=== PATIENT | male | born 1930 | race Two or more races ===

== ENCOUNTER 2017-06-26 22:57 | Inpatient (IN) | payer MEDICARE, OTHER ==
[~2017-06-26] VITALS: Ht 177.8 cm; Wt 82.1 kg
--- NOTE | 2017-06-26 23:10 | NUR ---
TO BED 6 A 87 YO MALE BB SPOUSE; "LEFT FOOT, LEG, HIP PAIN, DENIES TRAUMA; PEEING ALOT." PATIENT IS AAOX4, VSS, NAD NOTED, AFEBRILE. COMFORT MEASURES INITIATED. GOWNED. AWAITING FOR ER MD WILKERSON.
--- NOTE | 2017-06-26 23:20 | NUR ---
Dr Saravia at bedside for eval.
--- NOTE | 2017-06-27 00:04 | NUR ---
urined collected via clean catch, called lab for garbage pick up man.
--- NOTE | 2017-06-27 00:28 | NUR ---
Aurea avina in [facility] - 06/27/17 at 0104 by LITA ultrasound completed
[2017-06-27 00:35] LABS: APPEARANCE,URINE CLEAR (CLEAR); BILIRUBIN,URINE NEGATIVE (NEGATIVE); BLOOD, URINE 1+ Ery/uL (NEGATIVE); COLOR,URINE YELLOW (YELLOW); KETONES,URINE NEGATIVE (NEGATIVE); LEUKOCYTE ESTERASE ,URINE 1+ (NEGATIVE); NITRITE, URINE NEGATIVE (NEGATIVE); PROTEIN,URINE NEGATIVE (NEGATIVE); UGLUCOSE NEGATIVE (NEGATIVE); UROBILINOGEN,URINE 0.2 EU/dL (0.2)
[2017-06-27 00:49] LABS: BACTERIA,URINE None seen /HPF (None Seen); MUCUS,URINE Few /LPF (None Seen); SQUAMOUS EPITHELIAL CELL,UR Few /HPF (None Seen)
--- NOTE | 2017-06-27 00:55 | NUR ---
BACK FROM CT.
--- NOTE | 2017-06-27 02:04 | NUR ---
started a saline lock on the right wrist g18, blood drawn and sent to lab.
[2017-06-27 02:11] LABS: BASOPHILS # (AUTO) 0.2 /CMM (0.0-0.2); BASOPHILS % (AUTO) 0.8 % (0.0-2.0); EOSINOPHILS # (AUTO) 0.2 /CMM (0.0-0.7); EOSINOPHILS % (AUTO) 0.9 % (0.0-6.0); HEMATOCRIT 36 % (39-51); HEMOGLOBIN 12.4 g/dL (13.5-17.5); LYMPHOCYTES # (AUTO) 14.8 /CMM (0.8-4.8); LYMPHOCYTES % (AUTO) 63.4 % (20.0-44.0); MEAN CORPUSCULAR HEMOGLOBIN 32 PG (26.0-33.0); MEAN CORPUSCULAR HGB CONC 35 g/dl (31.0-36.0); MEAN CORPUSCULAR VOLUME 92 fL (80-96); MONOCYTES # (AUTO) 1.6 /CMM (0.1-1.30); MONOCYTES % (AUTO) 6.9 % (2.0-12.0); NEUTROPHILS # (AUTO) 6.5 /CMM (1.8-8.9); PLATELET COUNT (AUTO) 214 /CMM (150-450); RDW COEFFICIENT OF VARIATION 15.4 (11.5-15.0); RED BLOOD CELL COUNT(AUTO) 3.89 MIL/uL (4.5-6.0); WHITE BLOOD COUNT (AUTO) 23.3 K/uL (4.3-11.0)
[2017-06-27 02:25] LABS: INR 1.08 (0.87-1.13); PROTHROMBIN TIME 11.6 SECS (9.5-12.7)
[2017-06-27 02:54] LABS: CALCIUM, SERUM 8.5 mg/dL (8.5-10.1); CARBON DIOXIDE 26 mmol/L (21-32); CHLORIDE 91 mmol/L (98-107); GLUCOSE 98 mg/dL (74-106); POTASSIUM 4.5 mmol/L (3.5-5.1); SODIUM SERUM 123 mmol/L (136-145); UREA NITROGEN, BLOOD 17 mg/dL (7-18)
[2017-06-27] MEDS ORDERED: LACT1CAP63 PO (02:59)
[2017-06-27] MEDS ORDERED: MULT-70 PO ×2 (02:59)
[2017-06-27] MEDS ORDERED: HYDR-552 PO (02:59)
[2017-06-27] MEDS ORDERED: PANT40TA2 PO (02:59)
[2017-06-27 03:00] LABS: ALANINE AMINOTRANSFERASE 86 U/L (12-78); ALBUMIN 2.4 g/dL (3.4-5.0); ALKALINE PHOSPHATASE 103 U/L (46-116); ASPARTATE AMINOTRANSFERASE 63 U/L (15-37); BILIRUBIN,DIRECT 0.4 mg/dL (0.0-0.2); BILIRUBIN,TOTAL 1.2 mg/dL (0.2-1.0); LIPASE 80 U/L (73-393); TOTAL PROTEIN, SERUM 5.7 g/dL (6.4-8.2)
[2017-06-27 03:03] LABS: TROPONIN I < 0.017 ng/mL (0.00-0.056)
[2017-06-27] MEDS ORDERED: PIPERACILLIN /TAZOBACTAM 3.375 G VIAL IV ONE (03:28)
[2017-06-27] MEDS ORDERED: CEFTRIAXONE 1 G in IV D5W 50 ML IV SCH (03:30)
[2017-06-27] MEDS ORDERED: ONDANSETRON HCL/PF 4 MG/2 ML VIAL IVP PRN (03:30)
[2017-06-27] MEDS ORDERED: MAG HYDROX/AL HYDROX/SIMETH 30 ML UDC PO PRN (03:30)
[2017-06-27] MEDS ORDERED: ACETAMINOPHEN 325 MG TABLET PO PRN (03:30)
[2017-06-27] MEDS ORDERED: PIPERACILLIN /TAZOBACTAM 3.375 G in IV D5W 50 ML IV ONE (03:30)
[2017-06-27] MEDS ORDERED: MAGNESIUM HYDROXIDE 30 ML UDC PO PRN (03:30)
[2017-06-27] MEDS ORDERED: Z GUARD REMEDY 2 OZ OINT TP PRN (03:30)
--- NOTE | 2017-06-27 03:38 | NUR ---
Patient is sleeping comfortably at this time.
--- NOTE | 2017-06-27 04:00 | NUR ---
MS/RN NOTES RECEIVED PT. FROM ER VIA JENNIFFER. PT. IS AWAKE, ALERT AND ORIENTED X3. BREATHING EVEN AND UNLABORED ON ROOM AIR. ORIENTED PT. TO ROOM. NO SOB OR RESPIRATORY DISTRESS NOTED AT THIS TIME. PT. COMPLAINING OF PAIN 8/10 IN LEFT HIP. WILL ADMINISTER PAIN MEDICATION ORDERED. PT. FAMILY MEMBER PRESENT AT BEDSIDE. BED IN LOWEST POSITION, CALL LIGHT WITHIN REACH, WILL CONTINUE TO MONITOR.
--- NOTE | 2017-06-27 04:01 | NUR ---
Report given to Mee FERNANDO for medsurg admission and tolu.
--- NOTE | 2017-06-27 04:09 | NUR ---
Transported patient to [facility] floor rm [id number], no incident noted. SO at bedside.
[2017-06-27 04:10] VITALS: BP 146/81
[2017-06-27] MEDS ORDERED: CEFTRIAXONE 1 G VIAL ONE (04:17)
[2017-06-27 04:21] LABS: EOSINOPHILS % (MANUAL) 3 % (0-4); LYMPHOCYTES % (MANUAL) 66 % (16-48); MONOCYTES % (MANUAL) 2 % (0-11.0); NEUTROPHILS % (MANUAL) 29 (42-76)
[2017-06-27] MEDS ORDERED: MORPHINE SULFATE INJ 2 MG/ML DISP.SYRIN ONE (04:39)
[2017-06-27] MEDS: MORPHINE SULFATE INJ 2 MG/ML DISP.SYRIN IV PRN (04:43)
[2017-06-27] MEDS: IV NS 0.9% 1,000 ML IV PRN ×2 (04:43→18:05)
--- NOTE | 2017-06-27 06:36 | NUR ---
MS/RN NOTES PT. LYING IN BED RESTING. BREATHING EVEN AND UNLABORED ON ROOM AIR. NO SOB, RESPIRATORY DISTRESS OR COMPLAINTS OF PAIN NOTED AT THIS TIME. PT. WITH RIGHT WRIST 18 GAUGE PERIPHERAL IV PRESENT, PATENT AND INTACT ADMINISTERING TO PT. NS @ 75 ML/HR. ALL PT. NEEDS MET. PT. TURNED AND REPOSITIONED Q2H AND NEEDED. BED IN LOWEST POSITION, CALL LIGHT WITHIN REACH, WILL ENDORSE TO DAYSHIFT NURSE FOR CONTINUITY OF CARE.
--- NOTE | 2017-06-27 07:42 | NUR ---
RN MS NOTES RECEIVED PATIENT IN BED, A/OX3, VERBALLY RESPONSIVE. NO APPARENT DISTRESS NOTED, DENIES PAIN, DENIES SOB. IV LINE ON RIGHT WRIST PATENT, INFUSING NS AT 75 ML/R. ALL NEEDS MET, CALL LIGHT WITHIN REACH.
[2017-06-27 08:00] VITALS: BP 142/75
[2017-06-27] MEDS: MULTIVITAMINS,THERAGRAN 1 UDTAB TABLET PO SCH (08:51)
[2017-06-27] MEDS: LACTOBACILLUS RHAMNOSUS GG 1 EACH CAP.SPRINK PO SCH ×2 (08:51→16:51)
[2017-06-27] MEDS: PANTOPRAZOLE 40 MG TABLET.DR PO SCH (08:51)
[2017-06-27] MEDS: GABAPENTIN 100 MG CAPSULE PO SCH ×2 (12:34→16:51)
[2017-06-27] MEDS: NAPROXEN 250 MG TABLET PO SCH ×2 (12:34→16:51)
[2017-06-27 13:27] LABS: URINE SODIUM, RANDOM 13 mmol/l (40-220)
[2017-06-27 13:36] LABS: OSMOLALITY,URINE 276 mOS/kg (340-1090)
[2017-06-27] MEDS: HYDROCODONE/APAP 5/325MG 1 EACH TABLET PO PRN (14:32)
[2017-06-27 16:00] VITALS: BP 132/93
--- NOTE | 2017-06-27 19:06 | NUR ---
RN MS CLOSING NOTES PATIENT IN BED, NO APPARENT DISTRESS NOTED, DENIES PAIN, DENIES SOB. IV LINE ON RIGHT WRIST PATENT, INFUSING NS AT 75ML/HR. ALL DUE MEDS GIVE, ALL NEEDS MET. WILL ENDORSE CARE TO PM SHIFT.
--- NOTE | 2017-06-27 19:30 | NUR ---
RN NOTES RECEIVED PT AWAKE ON BED, A/OX3, WITH CONFUSION, AT BEDSIDE, DENIES PAIN, NO SOB, CALL LIGHT WITHIN REACH, SIDERAILS UPX2, WILL CONTINUE TO MONITOR
[2017-06-27 20:00] VITALS: BP 120/65
--- NOTE | 2017-06-27 23:00 | NUR ---
RN NOTES PT WANTS HIS DOOR TO CLOSED TIGHTLY BUT WE EXPLAINED TO HIM THAT WE NEED TO COME ON HIS ROOM EVERY HOUR TO CHECK ON HIM SO WE CAN'T CLOSED IT TIGHTLY , PT STILL INSIST AND HE" STATED INOCENCIA HE IS GOING TO BE LIABLE FOR WHATEVER HAPPEN TO HIM"
[2017-06-28] MEDS: CEFTRIAXONE 1 G in IV D5W 50 ML IV SCH (05:52)
--- NOTE | 2017-06-28 06:37 | NUR ---
RN NOTES AWAKE, IV FLUID RUNNING, DENIES PAIN, NO SOB, MORNING CARE RENDERED, PT NEEDS ATTENDED. ENDORSED TO DAYSHIFT NURSE FOR CONTINUITY OF CARE
[2017-06-28 07:02] LABS: BASOPHILS # (AUTO) 0.1 /CMM (0.0-0.2); BASOPHILS % (AUTO) 0.4 % (0.0-2.0); EOSINOPHILS # (AUTO) 0.2 /CMM (0.0-0.7); EOSINOPHILS % (AUTO) 1.2 % (0.0-6.0); HEMATOCRIT 36 % (39-51); HEMOGLOBIN 12.3 g/dL (13.5-17.5); LYMPHOCYTES # (AUTO) 10.7 /CMM (0.8-4.8); LYMPHOCYTES % (AUTO) 56.8 % (20.0-44.0); MEAN CORPUSCULAR HEMOGLOBIN 32 PG (26.0-33.0); MEAN CORPUSCULAR HGB CONC 35 g/dl (31.0-36.0); MEAN CORPUSCULAR VOLUME 93 fL (80-96); MONOCYTES % (AUTO) 10.8 % (2.0-12.0); NEUTROPHILS # (AUTO) 5.8 /CMM (1.8-8.9); NEUTROPHILS % (AUTO) 30.8 % (43.0-81.0); PLATELET COUNT (AUTO) 146 /CMM (150-450); RDW COEFFICIENT OF VARIATION 15.3 (11.5-15.0); RED BLOOD CELL COUNT(AUTO) 3.83 MIL/uL (4.5-6.0); WHITE BLOOD COUNT (AUTO) 18.9 K/uL (4.3-11.0)
[2017-06-28 07:15] LABS: CALCIUM, SERUM 8.6 mg/dL (8.5-10.1); CARBON DIOXIDE 26 mmol/L (21-32); CHLORIDE 95 mmol/L (98-107); CREATININE 0.8 mg/dL (0.6-1.3); GLUCOSE 96 mg/dL (74-106); MAGNESIUM 1.9 mg/dL (1.8-2.4); PHOSPHORUS 3.2 mg/dL (2.5-4.9); POTASSIUM 4.3 mmol/L (3.5-5.1); SODIUM SERUM 128 mmol/L (136-145); UREA NITROGEN, BLOOD 15 mg/dL (7-18)
[2017-06-28 07:16] LABS: OSMOLALITY,URINE 288 mOS/kg (340-1090)
[2017-06-28 07:23] LABS: CHOLESTEROL 97 mg/dL (<200); HDL CHOLESTEROL < 10 mg/dL (40-60); LDL 47 mg/dL (0-99); TRIGLYCERIDES 191 mg/dL (30-150)
--- NOTE | 2017-06-28 07:46 | NUR ---
RN MS NOTES RECEIVED PATIENT IN BED, VERBALLY RESPONSIVE. NO APPARENT DISTRESS NOTED, DENIES PAIN DENIES SOB. IV LINE ON RIGHT WRIST PATENT, INFUSING NS AT 75ML/HR. ALL NEEDS MET, CALL LIGHT WITHIN REACH.
[2017-06-28 07:57] LABS: URINE SODIUM, RANDOM 14 mmol/l (40-220)
[2017-06-28 08:00] VITALS: BP 154/90
[2017-06-28] MEDS: PANTOPRAZOLE 40 MG TABLET.DR PO SCH (09:35)
[2017-06-28] MEDS: GABAPENTIN 100 MG CAPSULE PO SCH ×3 (09:35→17:14)
[2017-06-28] MEDS: LACTOBACILLUS RHAMNOSUS GG 1 EACH CAP.SPRINK PO SCH ×2 (09:35→17:13)
[2017-06-28] MEDS: MULTIVITAMINS,THERAGRAN 1 UDTAB TABLET PO SCH (09:35)
[2017-06-28] MEDS: NAPROXEN 250 MG TABLET PO SCH ×3 (09:35→17:13)
[2017-06-28 10:00] LABS: LYMPHOCYTES % (MANUAL) 61 % (16-48); MONOCYTES % (MANUAL) 5 % (0-11.0); NEUTROPHILS % (MANUAL) 34 (42-76)
--- NOTE | 2017-06-28 11:00 | NUR ---
RN MS NOTES PATIENT AMBULATED AROUND UNIT WITH WALKER ASSISTANCE. TOLERATED WELL.
[2017-06-28] MEDS: IV NS 0.9% 1,000 ML IV PRN (11:23)
[2017-06-28 16:00] VITALS: BP 131/73
[2017-06-28] MEDS: BOOST PLUS FOOD-VANILLA 237 ML BOX PO SCH (18:11)
--- NOTE | 2017-06-28 18:41 | NUR ---
RN MS CLOSING NOTES PATIENT IN BED, VERBALLY RESPONSIVE WITH AT BEDSIDE. NO APPARENT DISTRESS NOTED, DENIES PAIN, DENIES SOB. IV LINE ON RIGHT WRIST PATENT, INFUSING NS AT 75ML/HR. ALL NEEDS MET, CALL LIGHT WITHIN REACH. WILL ENDORSE CARE TO PM SHIFT.
[2017-06-28] MEDS: MORPHINE SULFATE INJ 2 MG/ML DISP.SYRIN IV PRN (19:07)
--- NOTE | 2017-06-28 19:30 | NUR ---
MS RN OPENING NOTES: PATIENT IN BED, AOX3, ON ROOM AIR, BREATHING EVEN AND UNLABORED, BREATH SOUNDS CLEAR TO AUSCULTATION, SLIGHTLY DIMINISHED OVER LEFT LOWER LUNG FIELD. PIV OVER R WRIST G 18 INTACT AND PATENT, INFUSING WELL WITH NS RUNNING AT 75 ML/HR. DRESSING OVER PIV SITE CHANGED. WHEN ASKED IF HE HAS PAIN, PATIENT POINTS TOWARDS LEFT HIP, BUT WAS UNABLE TO SCALE IT AT THIS TIME,APPEARS RELAXED AND COMFORTABLE, CHEWING GUM. AT BEDSIDE. PROVIDED FOR COMFORT AND SAFETY. BED IN LOWEST AND LOCKED POSITION. SIDERAILS UP X3. WILL CONT TO MONITOR.
[2017-06-28 20:00] VITALS: BP 138/72
[2017-06-29] MEDS: IV NS 0.9% 1,000 ML IV PRN ×2 (02:02→20:00)
[2017-06-29] MEDS: HYDROCODONE/APAP 5/325MG 1 EACH TABLET PO PRN (02:22)
--- NOTE | 2017-06-29 02:24 | NUR ---
RN NOTES: PATIENT COMPLAINED OF PAIN OVER 7/10 LEFT HIP. ADMINISTERED NORCO 5-325 MG PO. POSITIONED FOR COMFORT. WILL CONT TO MONITOR.
[2017-06-29 02:25] VITALS: BP 136/78
[2017-06-29] MEDS: CEFTRIAXONE 1 G in IV D5W 50 ML IV SCH (05:41)
--- NOTE | 2017-06-29 06:35 | NUR ---
MS RN CLOSING NOTES: PATIENT IN BED, AOX3, ON ROOM AIR, BREATHING EVEN AND UNLABORED. APPEARS CALM AND IN NO DISTRESS. PATIENT ONLY SLEPT INTERMITTENTLY THROUGH NIGHT DUE TO URINARY FREQUENCY. POSITIONED FOR COMFORT. DUE MEDS GIVEN. PIV OVER R WRIST G 18 INTACT AND INFUSING WELL WITH NS RUNNING AT 75 ML/HR. MORNING CARE RENDERED. ASSISTED IN TURNING IN BED. PROVIDED FOR COMFORT AND SAFETY. BED IN LOWEST AND LOCKED POSITION, SIDERAILS UP X3. CALL LIGHT WITHIN REACH. WILL ENDORSE TO AM RN FOR MARCE.
[2017-06-29 07:11] LABS: APPEARANCE,URINE CLEAR (CLEAR); BILIRUBIN,URINE NEGATIVE (NEGATIVE); BLOOD, URINE TRACE-INTA Ery/uL (NEGATIVE); COLOR,URINE YELLOW (YELLOW); KETONES,URINE NEGATIVE (NEGATIVE); LEUKOCYTE ESTERASE ,URINE TRACE (NEGATIVE); NITRITE, URINE NEGATIVE (NEGATIVE); PROTEIN,URINE NEGATIVE (NEGATIVE); UGLUCOSE NEGATIVE (NEGATIVE); UROBILINOGEN,URINE 0.2 EU/dL (0.2)
[2017-06-29 07:21] LABS: ALANINE AMINOTRANSFERASE 80 U/L (12-78); ALBUMIN 2.3 g/dL (3.4-5.0); ALKALINE PHOSPHATASE 92 U/L (46-116); ASPARTATE AMINOTRANSFERASE 68 U/L (15-37); BILIRUBIN,DIRECT 0.2 mg/dL (0.0-0.2); BILIRUBIN,TOTAL 0.8 mg/dL (0.2-1.0); CALCIUM, SERUM 8.5 mg/dL (8.5-10.1); CARBON DIOXIDE 28 mmol/L (21-32); CHLORIDE 97 mmol/L (98-107); CREATININE 0.9 mg/dL (0.6-1.3); GLUCOSE 89 mg/dL (74-106); MAGNESIUM 2.1 mg/dL (1.8-2.4); PHOSPHORUS 3.2 mg/dL (2.5-4.9); POTASSIUM 4.4 mmol/L (3.5-5.1); SODIUM SERUM 129 mmol/L (136-145); TOTAL PROTEIN, SERUM 5.3 g/dL (6.4-8.2); UREA NITROGEN, BLOOD 15 mg/dL (7-18)
[2017-06-29 07:28] LABS: BASOPHILS # (AUTO) 0.1 /CMM (0.0-0.2); BASOPHILS % (AUTO) 0.4 % (0.0-2.0); EOSINOPHILS # (AUTO) 0.3 /CMM (0.0-0.7); EOSINOPHILS % (AUTO) 1.6 % (0.0-6.0); HEMATOCRIT 35 % (39-51); HEMOGLOBIN 11.9 g/dL (13.5-17.5); LYMPHOCYTES # (AUTO) 11.2 /CMM (0.8-4.8); LYMPHOCYTES % (AUTO) 56.6 % (20.0-44.0); MEAN CORPUSCULAR HEMOGLOBIN 32 PG (26.0-33.0); MEAN CORPUSCULAR HGB CONC 35 g/dl (31.0-36.0); MEAN CORPUSCULAR VOLUME 93 fL (80-96); MONOCYTES # (AUTO) 1.6 /CMM (0.1-1.30); MONOCYTES % (AUTO) 8.2 % (2.0-12.0); NEUTROPHILS # (AUTO) 6.6 /CMM (1.8-8.9); NEUTROPHILS % (AUTO) 33.2 % (43.0-81.0); PLATELET COUNT (AUTO) 127 /CMM (150-450); RDW COEFFICIENT OF VARIATION 14.9 (11.5-15.0); RED BLOOD CELL COUNT(AUTO) 3.72 MIL/uL (4.5-6.0); WHITE BLOOD COUNT (AUTO) 19.8 K/uL (4.3-11.0)
--- NOTE | 2017-06-29 07:46 | NUR ---
RN NOTES RECEIVED PT IN BED, PT IS STABLE AND SLEEPING. A/O X3. NO S/S OF SOB OR DISTRESS. IV ACCESS LOCATED ON RIGHT WRIST, 18G RUNNING NS AT 75 ML/HR. SAFETY MEASURES IN PLACE, CALL LIGHT WITHIN REACH. WILL CONTINUE TO MONITOR.
[2017-06-29 07:56] LABS: RBC,URINE 0-3 /HPF (0-2)
[2017-06-29 07:57] LABS: BACTERIA,URINE None seen /HPF (None Seen); SQUAMOUS EPITHELIAL CELL,UR Few /HPF (None Seen)
[2017-06-29 08:00] VITALS: BP 146/85
[2017-06-29] MEDS: GABAPENTIN 100 MG CAPSULE PO SCH ×3 (08:17→16:23)
[2017-06-29] MEDS: LACTOBACILLUS RHAMNOSUS GG 1 EACH CAP.SPRINK PO SCH ×2 (08:17→16:23)
[2017-06-29] MEDS: NAPROXEN 250 MG TABLET PO SCH ×3 (08:17→16:23)
[2017-06-29] MEDS: MULTIVITAMINS,THERAGRAN 1 UDTAB TABLET PO SCH (08:17)
[2017-06-29] MEDS: PANTOPRAZOLE 40 MG TABLET.DR PO SCH (08:18)
[2017-06-29] MEDS: BOOST PLUS FOOD-VANILLA 237 ML BOX PO SCH ×2 (09:08→16:24)
[2017-06-29] MEDS: MORPHINE SULFATE INJ 2 MG/ML DISP.SYRIN IV PRN ×3 (11:53→22:46)
--- NOTE | 2017-06-29 12:35 | NUR ---
Social service consult requested by GINNA Roper in regarding to questions regarding advance directives. Pt. is a 89 year old male who was admitted to [facility] for Splenic Hematoma. SCHUYLER met with pt. and his Nyla bedside. Pt. was asleep during SW's visit bedside. Pt's Nyla informed SCHUYLER she and her want some information on Advance Directives. SCHUYLER explained advance directives to Nyla and informed her that she will bring the Advance Directives Form later this afternoon and go over the form with her and the pt. Nyla had some questions for case management, SCHUYLER informed Nyla, she will let the caseworker intake know and have them come see her regarding answering her questions.
[2017-06-29 16:00] VITALS: BP 126/80
--- NOTE | 2017-06-29 18:53 | NUR ---
RN CLOSING NOTE PATIENT IS AWAKE AND STABLE IN BED. IS BEDSIDE. NO S/S OF DISTRESS OR PAIN. PAIN MANAGEMENT COMPLETED FOR PATIENT. ALL PATIENT NEEDS MET, SAFETY MEASURES IN PLACE. WILL ENDORSE TO WELCOME WAGON HOST/HOSTESS FOR MARCE.
--- NOTE | 2017-06-29 19:30 | NUR ---
MS RN OPENING NOTES: PATIENT IN BED, AOX3, ON ROOM AIR, BREATHING EVEN AND UNLABORED. PIV OVER R HAND G18 NOTED TO BE LEAKING. APPEARS CALM AND IN NO DISTRESS. DENIES PAIN AT THIS TIME. PROVIDED FOR COMFORT AND SAFETY. AT BEDSIDE. WILL CONT TO MONITOR.
[2017-06-29 20:00] VITALS: BP 124/75
--- NOTE | 2017-06-29 20:30 | NUR ---
RN NOTES: PIV OVER R HAND WAS LEAKING. D'GABRIEL LINE AND REINSERTED NEW IV LINE OVER LEFT WRIST G22.
--- NOTE | 2017-06-29 22:50 | NUR ---
RN NOTES: PATIENT COMPLAINED OF 9/10 PAIN OVER LEFT SIDE OF ABDOMEN, EXTENDING TO LEFT HIP, AND TO LEFT LEG. ADMINISTERED MORPHINE 2 MG IV. PROVIDED FOR COMFORT MEASURES. PATIENT IN BED, ON LOWEST POSITION, SIDERAILS UP, BED ALARMS ON. AT BEDSIDE. WILL CONT TO MONITOR.
[2017-06-30] MEDS: CEFTRIAXONE 1 G in IV D5W 50 ML IV SCH (05:34)
--- NOTE | 2017-06-30 06:18 | NUR ---
MS RN CLOSING NOTES: PATIENT IN BED, AOX3, ON ROOM AIR, BREATHING EVEN AND UNLABORED. PIV OVER LEFT WRIST G 22 INTACT AND INFUSING WELL WITH NS RUNNING AT 75 ML/HR. PROVIDED FOR COMFORT AND SAFETY. DUE MEDS GIVEN,. MORNING CARE RENDERED. PROVIDED FOR COMFORT AND SAFETY. BED IN LOWEST AND LOCKED POSITION, SIDERAILS UP X3. BED ALARM ON. WILL ENDORSE TO AM RN FOR MARCE.
--- NOTE | 2017-06-30 07:20 | NUR ---
RN MS NOTES PATIENT IN BED, ALERT AND ORIENTED X3, NO DISTRESS NOTED, BREATHING EVEN AND UNLABORED, ALL NEEDS ATTENDED, PIV PATENT AND INTACT, IVF INFUSING AND TOLERATING WELL, CALL LIGHT WITHIN REACH, SAFETY MEASURES IN PLACED, WILL CONTINUE TO MONITOR.
[2017-06-30 07:28] LABS: BASOPHILS # (AUTO) 0.1 /CMM (0.0-0.2); BASOPHILS % (AUTO) 0.2 % (0.0-2.0); EOSINOPHILS # (AUTO) 0.2 /CMM (0.0-0.7); EOSINOPHILS % (AUTO) 0.7 % (0.0-6.0); HEMATOCRIT 35 % (39-51); HEMOGLOBIN 11.9 g/dL (13.5-17.5); LYMPHOCYTES # (AUTO) 11.3 /CMM (0.8-4.8); LYMPHOCYTES % (AUTO) 48.6 % (20.0-44.0); MEAN CORPUSCULAR HEMOGLOBIN 32 PG (26.0-33.0); MEAN CORPUSCULAR HGB CONC 34 g/dl (31.0-36.0); MEAN CORPUSCULAR VOLUME 93 fL (80-96); MONOCYTES # (AUTO) 1.7 /CMM (0.1-1.30); MONOCYTES % (AUTO) 7.2 % (2.0-12.0); NEUTROPHILS # (AUTO) 10.1 /CMM (1.8-8.9); NEUTROPHILS % (AUTO) 43.3 % (43.0-81.0); PLATELET COUNT (AUTO) 119 /CMM (150-450); RDW COEFFICIENT OF VARIATION 15.5 (11.5-15.0); RED BLOOD CELL COUNT(AUTO) 3.76 MIL/uL (4.5-6.0); WHITE BLOOD COUNT (AUTO) 23.2 K/uL (4.3-11.0)
[2017-06-30 07:37] LABS: CARBON DIOXIDE 23 mmol/L (21-32); CHLORIDE 98 mmol/L (98-107); CREATININE 0.9 mg/dL (0.6-1.3); GLUCOSE 96 mg/dL (74-106); POTASSIUM 4.6 mmol/L (3.5-5.1); SODIUM SERUM 130 mmol/L (136-145); UREA NITROGEN, BLOOD 18 mg/dL (7-18)
[2017-06-30 07:58] LABS: PROTHROMBIN TIME 11.6 SECS (9.5-12.7)
[2017-06-30 07:59] LABS: D-DIMER 4.89 mg/L(FEU (0.17-0.50); INR 1.08 (0.87-1.13)
[2017-06-30 08:00] VITALS: BP 129/88
[2017-06-30] MEDS: IV NS 0.9% 1,000 ML IV PRN ×2 (08:38→23:14)
[2017-06-30] MEDS: MULTIVITAMINS,THERAGRAN 1 UDTAB TABLET PO SCH (08:39)
[2017-06-30] MEDS: NAPROXEN 250 MG TABLET PO SCH ×3 (08:39→17:00)
[2017-06-30] MEDS: GABAPENTIN 100 MG CAPSULE PO SCH ×3 (08:39→17:00)
[2017-06-30] MEDS: LACTOBACILLUS RHAMNOSUS GG 1 EACH CAP.SPRINK PO SCH ×2 (08:39→17:17)
[2017-06-30] MEDS: PANTOPRAZOLE 40 MG TABLET.DR PO SCH (08:39)
[2017-06-30] MEDS: HYDROCODONE/APAP 5/325MG 1 EACH TABLET PO PRN (08:40)
[2017-06-30] MEDS: BOOST PLUS FOOD-VANILLA 237 ML BOX PO SCH ×2 (09:04→17:17)
[2017-06-30 16:00] VITALS: BP 124/79
--- NOTE | 2017-06-30 18:16 | NUR ---
RN MS NOTES PATIENT IN BED ALERT AND ORIENTED, BREATHING EVEN AND UNLABORED, NO DISTRESS NOTED, SPOUSE AT BEDSIDE, PIV PATENT AND INTACT, FLUSHES WELL, IVF INFUSING, ALL NEEDS ATTENDED AND MET, CALL LIGHT WITHIN REACH, SPOUSE REQUESTING FOR A UROLOGIST, WILL ENDORSE TO IMPREGNATOR ELECTROLYTIC CAPACITORS.
--- NOTE | 2017-06-30 19:20 | NUR ---
RN NOTES PATIENT IN BED, AOX3, NO SOB, NOT IN DISTRESS, ON ROOM AIR, ON ROOM AIR WITH GOOD SATURATION. DENIES PAIN AND DISCOMFORT AT THIS TIME, AT BEDSIDE. IV ACCESS ON LEFT WRIST PATENT AND INTACT WITH ONGOING IVF INFUSING WELL. KEPT COMFORTABLE AND ATTENDED. WILL CONT TO MONITOR.
--- NOTE | 2017-06-30 19:50 | NUR ---
RN NOTES SEEN AND EXAMINED BY DR PEREZ, NEW ORDER RECEIVED TYLENOL SCHEDULED DOSE, AT BEDSIDE AWARE. NOTED AND CARRIED OUT. WILL CONTINUE TO MONITOR PT.
[2017-06-30 20:00] VITALS: BP 123/73
[2017-06-30 22:00] VITALS: BP 123/73
[2017-07-01] MEDS ORDERED: ACETAMINOPHEN 325 MG TABLET PO SCH
[2017-07-01] MEDS: CEFTRIAXONE 1 G in IV D5W 50 ML IV SCH (05:28)
--- NOTE | 2017-07-01 07:25 | NUR ---
PRN NOTES PT ASLEEP, BREATHING REGULAR AND UNLABORED, ON ROOM AIR AND TOLERATED WELL.VITAL SIGNS STABLE, AFEBRILE. NO COMPLAIN OF PAIN, DIZZINESS, NAUSEA AND VOMITING. ABLE TO AMBULATE WITH FWW WITH ASSISTANCE GOING TO THE BATHROOM. STILL NOTED WITH URINARY FREQUENCY. NO SIGNIFICANT CHANGE IN CONDITION NOTED. KEPT PAIN AT TOLERABLE LEVEL. ALL NEEDS ATTENDED. WILL ENDORSE TO MORNING RN FOR CONTINUITY OF CARE.
[2017-07-01 08:00] VITALS: BP 142/88
[2017-07-01] MEDS: BOOST PLUS FOOD-VANILLA 237 ML BOX PO SCH ×2 (08:00→16:45)
[2017-07-01] MEDS: PANTOPRAZOLE 40 MG TABLET.DR PO SCH (09:00)
[2017-07-01] MEDS: LACTOBACILLUS RHAMNOSUS GG 1 EACH CAP.SPRINK PO SCH ×2 (09:00→16:40)
[2017-07-01] MEDS: MULTIVITAMINS,THERAGRAN 1 UDTAB TABLET PO SCH (09:00)
[2017-07-01] MEDS: GABAPENTIN 100 MG CAPSULE PO SCH ×3 (09:00→16:40)
[2017-07-01] MEDS: NAPROXEN 250 MG TABLET PO SCH ×3 (09:00→16:40)
--- NOTE | 2017-07-01 09:48 | NUR ---
MS RN NOTE PLEASE SEE NURSING NOTE IN CHART FOR MORNING DOCUMENTATION DUE TO SYSTEM BEING DOWN. ALSO SEE DOWNTIME MEDICATION LIST IN PATIENT'S CHART FOR MEDICATIONS GIVEN DURING SYSTEM DOWNTIME IN CHART
--- NOTE | 2017-07-01 12:30 | NUR ---
MS RN NOTE PER PATIENT HE DOESNT WANT TO TAKE NOON AND ONE O'CLOCK SCHEDULED MEDICATIONS. EXPLAINED RISKS AND BENEFITS, STILL REFUSED.
[2017-07-01] MEDS: ACETAMINOPHEN 325 MG TABLET PO SCH ×2 (12:33→18:00)
--- NOTE | 2017-07-01 12:38 | NUR ---
On 06/29, SW had met with pt. and his Nyla and explained the Advance Directive form. SW met with pt. and his today and gave them a blank copy of the Advance Directive Form and informed Nyla that since pt. is going to a nursing facility, the nursing facility can facilitate with the Ombudsman to assist in completing the advance directive.
[2017-07-01 16:00] VITALS: BP 127/66
[2017-07-01] MEDS: IV NS 0.9% 1,000 ML IV PRN (17:41)
--- NOTE | 2017-07-01 18:31 | NUR ---
MS RN CLOSING NOTE PATIENT IS ALERT AND ORIENTED x3. NO PAIN AT THIS TIME. NO SOB OR DISTRESS NOTED. CALL LIGHT WITHIN REACH AT ALL TIMES. SAFETY MEASURES IMPLEMENTED. ALL DUE MEDICATION GIVEN ORDERED. IV INTACT AND PATENT, NO REDNESS OR SWELLING NOTED. IV FLUIDS RUNNING AT 75 ML/HR. ABLE TO COMMUNICATE NEEDS. AWAITING PLACEMENT PRIOR TO DISCHARGE. WILL ENDORSE TO WATCH PARTS GRINDER NURSE
[2017-07-01 20:00] VITALS: BP 122/70
--- NOTE | 2017-07-01 20:00 | NUR ---
RN NOTES RECEIVED PATIENT IN BED, ALERT AND ORIENTED X3, ABLE TO VERBALIZE NEEDS, NO SOB, NO RESPIRATORY DISTRESS, TOLERATING ROOM AIR, SPO2 95%, DENIES ANY PAIN AT THIS TIME, LEFT WRIST INFUSING WELL, NEEDS ATTENDED, AT THE BEDSIDE, WILL CONTINUE TO MONITOR.
[2017-07-02] MEDS: ACETAMINOPHEN 325 MG TABLET PO SCH ×5 (00:40→23:04)
[2017-07-02] MEDS: IV NS 0.9% 1,000 ML IV PRN (04:57)
[2017-07-02] MEDS: CEFTRIAXONE 1 G in IV D5W 50 ML IV SCH (05:49)
--- NOTE | 2017-07-02 06:25 | NUR ---
RN NOTES PATIENT IN BED ALERT AND AWAKE, NO SOB, NO DISTRESS, GIVEN TYLENOL 650 MG SCHEDULE FOR GENERALIZED PAIN OF 3/10. NO ADVERSE CHANGE OF CONDITION DURING SHIFT, SLEPT FOR 5 HOURS INTERMITTENTLY, ALL DUE MEDICATIONS GIVEN, CALL LIGHT WITHIN REACH.
--- NOTE | 2017-07-02 07:39 | NUR ---
MS RN OPENING NOTE PATIENT IS ALERT AND ORIENTED x3. NO PAIN AT THIS TIME. NO SOB OR DISTRESS NOTED. CALL LIGHT WITHIN REACH. SAFETY MEASURES IMPLEMENTED. ABLE TO COMMUNICATE NEEDS. IV INTACT AND PATENT NO REDNESS OR SWELLING NOTED. POSSIBLE DISCHARGE TODAY. WILL CONTINUE TO MONITOR
[2017-07-02 08:00] VITALS: BP 126/65
[2017-07-02] MEDS: NAPROXEN 250 MG TABLET PO SCH ×3 (08:57→17:33)
[2017-07-02] MEDS: LACTOBACILLUS RHAMNOSUS GG 1 EACH CAP.SPRINK PO SCH ×2 (08:57→17:33)
[2017-07-02] MEDS: MULTIVITAMINS,THERAGRAN 1 UDTAB TABLET PO SCH (08:57)
[2017-07-02] MEDS: GABAPENTIN 100 MG CAPSULE PO SCH ×3 (08:57→17:33)
[2017-07-02] MEDS: PANTOPRAZOLE 40 MG TABLET.DR PO SCH (08:57)
[2017-07-02] MEDS: BOOST PLUS FOOD-VANILLA 237 ML BOX PO SCH ×2 (08:58→17:33)
[2017-07-02 16:00] VITALS: BP 148/81
--- NOTE | 2017-07-02 18:28 | NUR ---
MS RN CLOSING NOTE PATIENT IS ALERT AND ORIENTED x3. NO PAIN AT THIS TIME. NO SOB OR DISTRESS NOTED. CALL LIGHT WITHIN REACH AT ALL TIMES. SAFETY MEASURES IMPLEMENTED. IV INTACT AND PATENT NO REDNESS OR SWELLING NOTED. ABLE TO COMMUNICATE NEEDS. HAS BILATERAL HEARING AIDS IN AT THIS TIME. PATIENT WAS SUPPOSED TO BE DISCHARGED TODAY, WAS UPSET WANTING TO SPEAK TO JIM, GINNA AND ERIKA DIRECTOR. PATIENT'S SPOKE WITH THEM IN REGARDS TO DISCHARGE PLANNING. HAS BEEN UNABLE TO REACH AFTER LEAVING HOSPITAL AND NOT RESPONDING BACK TO PHONE CALLS. ALL DISCHARGE PAPERWORK PREPARED, PATIENT REFUSING TO SIGN PAPERWORK UNTIL HE SPEAKS WITH HIS . CHARGE NURSE AND NURSING RN GASTROENTEROLOGY ARE AWARE ABOUT SITUATION. CASE MANAGEMENT, PROFESSOR OF COMMUNICATION ARTS AND ERIKA ARE ALL WORKING ON DISCHARGE PLAN WITH AND PATIENT. WILL ENDORSE TO RIVETING MACHINE OPERATOR NURSE.
[2017-07-02 20:00] VITALS: BP 134/77
--- NOTE | 2017-07-02 20:00 | NUR ---
Ms/Rn opening notes patient awake,alertx3, able to verbalize needs. attend needs at all times. cooperative to care. provide fluids and needs. family () at bedside w/ concerns and inform the need to speak to the head nurse. inform md order to dc patient and family spoke w/ head nurse. patient does not want to sign d/c form as patient family want to read over the paper work. awaiting and will keep monitoring Nurse automobile mechanic supervisor have reiterated the plan of care per md order for discharge.
[2017-07-02 20:34] VITALS: BP 134/77
[2017-07-03] MEDS: HYDROCODONE/APAP 5/325MG 1 EACH TABLET PO PRN (04:37)
--- NOTE | 2017-07-03 04:37 | NUR ---
ms/rn notes patient reported pain on abdomen, and enlarge prostate, pain level 8/10, norco 5-325mg po given will continue to monitor.
--- NOTE | 2017-07-03 06:14 | NUR ---
ms/rn closing notes patient able to verbalize needs, slept 5-6 hours, pain medication provided norco 5-325mg due to 8/10 on abdomen. effective pain management. able to use urinal w/ 500ml, able to drink fluids.assist to go to bathroom for bm. will endorse to am rn regarding plan of care. call lights within reach. bed in lock position.
[2017-07-03] MEDS: ACETAMINOPHEN 325 MG TABLET PO SCH ×4 (06:40→18:55)
--- NOTE | 2017-07-03 07:15 | NUR ---
RN OPENING NOTES PATIENT IS ALERT AND ORIENTED x3. NO PAIN AT THIS TIME. NO SOB OR DISTRESS NOTED. CALL LIGHT WITHIN REACH. SAFETY MEASURES IMPLEMENTED. ABLE TO COMMUNICATE NEEDS. IV INTACT AND PATENT NO REDNESS OR SWELLING NOTED. POSSIBLE DISCHARGE TODAY. WILL CONTINUE TO MONITOR ACCORDINGLY.
[2017-07-03 08:00] VITALS: BP 124/88
[2017-07-03] MEDS: BOOST PLUS FOOD-VANILLA 237 ML BOX PO SCH ×3 (08:17→17:30)
[2017-07-03] MEDS: LACTOBACILLUS RHAMNOSUS GG 1 EACH CAP.SPRINK PO SCH ×3 (08:18→18:54)
[2017-07-03] MEDS: MULTIVITAMINS,THERAGRAN 1 UDTAB TABLET PO SCH (08:18)
[2017-07-03] MEDS: PANTOPRAZOLE 40 MG TABLET.DR PO SCH (08:18)
[2017-07-03] MEDS: GABAPENTIN 100 MG CAPSULE PO SCH ×4 (08:18→18:54)
[2017-07-03] MEDS: NAPROXEN 250 MG TABLET PO SCH ×4 (08:18→18:55)
--- NOTE | 2017-07-03 13:00 | NUR ---
RN NOTES PHYSICAL THERAPY CAME AND ATTEMPTED 2 TIMES, PATIENT REFUSED TO PARTICIPATE PHYSICAL THERAPY. PER PATIENT, HE DOESN'T FEEL WELL SAYING "IM SICK".
--- NOTE | 2017-07-03 15:30 | NUR ---
RN NOTES DEPENDENT EDEMA ON BLE AND SCROTUM/PENIS NOTED, JIM GIRALDO SNUFF BLENDER MADE AWARE. INSTRUCTED PATIENT TO AMBULATE AND PARTICIPATE WITH PHYSICAL THERAPY. WILL CONTINUE TO MONITOR ACCORDINGLY.
--- NOTE | 2017-07-03 15:51 | NUR ---
SW filed APS report for interference of care by pt's . APS intake ID #[id number] was submitted on 07/03/17 at 3:50PM.
[2017-07-03 16:00] VITALS: BP 128/78
--- NOTE | 2017-07-03 17:30 | NUR ---
RN NOTES PATIENT ACCIDENTALLY SPILL ALL THE MEDICATIONS, PULL ANOTHER SET OF MEDICATIONS FROM OMNICELL.
--- NOTE | 2017-07-03 19:00 | NUR ---
RN CLOSING NOTES PATIENT RESTING, ON BEDSIDE. NO ACUTE DISTRESS, NO SOB NOTED. ALL NEEDS ATTENDED AND PROVIDED. KEPT PATIENT SAFE AND COMFORTABLE. BED IN LOW POSITION, SIDERAILS UPX2, LOCKED, HOB ELEVATED, CALL LIGHT WITHIN REACH. ENDORSED TO PROCESS ARTIST RN FOR CONTINUITY OF CARE.
--- NOTE | 2017-07-03 19:23 | NUR ---
ms/rn opening notes patient sitting in bed, awake, alert x3. family at bedside. am rn discussed continuity of care and discissed concerns , patient cooperative to care, no s/s of discomfort. observed enlarge prostate, able to ambulate w/ use of walker and assist. can tolerate regular foods prefer to have pudding and drinl water. will continue to monitor and will follow up regarding culture result. call light within reach. bed in lock position.
[2017-07-03 20:00] VITALS: BP 109/69
[2017-07-04] MEDS: ACETAMINOPHEN 325 MG TABLET PO SCH ×4 (00:19→17:15)
[2017-07-04 06:49] LABS: BASOPHILS % (AUTO) 0.2 % (0.0-2.0); EOSINOPHILS # (AUTO) 0.5 /CMM (0.0-0.7); EOSINOPHILS % (AUTO) 2.3 % (0.0-6.0); HEMATOCRIT 34 % (39-51); HEMOGLOBIN 11.8 g/dL (13.5-17.5); LYMPHOCYTES # (AUTO) 10.6 /CMM (0.8-4.8); LYMPHOCYTES % (AUTO) 52.8 % (20.0-44.0); MEAN CORPUSCULAR HEMOGLOBIN 32 PG (26.0-33.0); MEAN CORPUSCULAR HGB CONC 35 g/dl (31.0-36.0); MEAN CORPUSCULAR VOLUME 91 fL (80-96); MONOCYTES % (AUTO) 9.7 % (2.0-12.0); PLATELET COUNT (AUTO) 99 /CMM (150-450); RDW COEFFICIENT OF VARIATION 16.1 (11.5-15.0); WHITE BLOOD COUNT (AUTO) 20.1 K/uL (4.3-11.0)
--- NOTE | 2017-07-04 07:00 | NUR ---
ms/rn closing notes patient in bed, awake, alertx3. able to verbalize needs, cooperative to care. no s/s of discomfort. on routine pain mgmt, tyleno1, 650mg po was given. skin warm to touch, able to have large bm ,offered and provide fluids. call lights within reach, bed in lock position. will continue to monitor and endorse to am rn for plan of care.
[2017-07-04 07:05] LABS: CALCIUM, SERUM 8.3 mg/dL (8.5-10.1); CARBON DIOXIDE 24 mmol/L (21-32); CHLORIDE 91 mmol/L (98-107); CREATININE 0.8 mg/dL (0.6-1.3); GLUCOSE 91 mg/dL (74-106); POTASSIUM 4.5 mmol/L (3.5-5.1); SODIUM SERUM 123 mmol/L (136-145); UREA NITROGEN, BLOOD 18 mg/dL (7-18)
--- NOTE | 2017-07-04 07:05 | NUR ---
MS RN INITIAL NOTE REPORT RECEIVED AT THE BEDSIDE. PATIENT IS RESTING COMFORTABLY IN BED. NO SOB OR DISTRESS NOTED AT THIS TIME. PATIENT DENIES PAIN AT THIS TIME. BED IN A LOW POSITION CALL LIGHT WITHIN PATIENT REACH. WILL CONTINUE TO MONITOR.
--- NOTE | 2017-07-04 07:45 | NUR ---
RN NOTES PATIENT ASSISTED OUT OF BED TO CHAIR. PATIENT NEEDS ONLY MINOR, STANDBY ASSISTANCE; AMBULATES WITH WALKER. PATIENT TOLERATED AMBULATION WELL, NO SOB OR DISTRESS NOTED, STEADY GATE NOTED. WILL GET PATIENT OUT OF BED FOR MEALS.
[2017-07-04 08:00] VITALS: BP 134/78
[2017-07-04] MEDS: BOOST PLUS FOOD-VANILLA 237 ML BOX PO SCH ×2 (08:40→17:15)
[2017-07-04] MEDS: LACTOBACILLUS RHAMNOSUS GG 1 EACH CAP.SPRINK PO SCH ×2 (08:41→17:15)
[2017-07-04] MEDS: PANTOPRAZOLE 40 MG TABLET.DR PO SCH (08:41)
[2017-07-04] MEDS: NAPROXEN 250 MG TABLET PO SCH ×3 (08:41→17:15)
[2017-07-04] MEDS: GABAPENTIN 100 MG CAPSULE PO SCH ×3 (08:41→17:15)
[2017-07-04 08:44] LABS: EOSINOPHILS % (MANUAL) 4 % (0-4); LYMPHOCYTES % (MANUAL) 37 % (16-48); MONOCYTES % (MANUAL) 7 % (0-11.0); NEUTROPHILS % (MANUAL) 52 (42-76)
[2017-07-04] MEDS: MULTIVITAMINS,THERAGRAN 1 UDTAB TABLET PO SCH (08:44)
[2017-07-04] MEDS: HYDROCODONE/APAP 5/325MG 1 EACH TABLET PO PRN (10:12)
--- NOTE | 2017-07-04 10:20 | NUR ---
RN NOTES PATIENT ASSISTED BACK TO BED. ONLY STANDBY ASSISTANCE NEEDED. PATIENT TOLERATED AMBULATION WELL. WILL CONTINUE TO MONITOR.
--- NOTE | 2017-07-04 14:08 | NUR ---
RN NOTES JIM, MANAGER OF HEALTH, AWARE OF LEG AND SCROTAL EDEMA AND EXAMINED PATIENT AT THE BEDSIDE. NO NEW ORDERS OTHER THAN AMBULATE PATIENT MUCH POSSIBLE AND OUT OF BED AT MEALS.
--- NOTE | 2017-07-04 14:09 | NUR ---
RN NOTES PATIENT'S , VALARIE IS ON THE FLOOR. JIM SPOKE TO THE PATIENT'S AND EXPLAINED THAT THE PATIENT IS MEDICALLY CLEARED TO DISCHARGE AND THAT THE APPEAL WAS NOT ACCEPTED. UMA AND CHARGE NURSE ORTIZ IN ROOM AND AGAIN IT WAS EXPLAINED THAT THE DISCHARGE IS ACTIVE AND THAT THE PATIENT CAN NO LONGER STAY IN THE HOSPITAL. THE PATIENT'S IS STILL REFUSING THE DISCHARGE. AWAITING NEXT WORD FROM NICCI ON WHAT TO DO NEXT.
--- NOTE | 2017-07-04 14:23 | NUR ---
RN NOTES UMA AND IN ROOM DISCUSSING PATIENT APPEAL AND DISCHARGE WITH , VALARIE.
--- NOTE | 2017-07-04 14:29 | NUR ---
RN NOTES PER UMA; PATIENT HAS UNTIL 1200 NOON TOMORROW BEFORE MEDICARE WILL NO LONGER COVER THE HOSPITAL VISIT AND THE PATIENT WILL BE CHARGED FOR THE VISIT. UMA, MANAGER ASSISTED LIVING, STATES THAT SHE WILL INFORM GINNA FERNANDEZ, OF THE DISCUSSION WITH THE PATIENT AND .
[2017-07-04 16:00] VITALS: BP 130/69
--- NOTE | 2017-07-04 16:54 | NUR ---
RN NOTES PATIENT'S SON JAMEL JASON CAME TO THE FLOOR REQUESTING INFORMATION ABOUT HIS FATHER. WAS UNABLE TO PROVIDE JAMEL WITH INFORMATION PATIENT IS IN THE RESTROOM AND NOT YET READY TO SEE HIS SON AND HAS NOT GIVEN PERMISSION TO SPEAK TO HIM OF NOW. PATIENT STATES HE WILL COME BACK LATER AND ASKS TO BE CONTACTED IF HE FATHER STATES IT IS OK TO SPEAK TO HIM ABOUT HIS CONDITION. . WILL ASK PATIENT ABOUT PERMISSION TO SPEAK TO SON AT A LATER TIME.
--- NOTE | 2017-07-04 19:11 | NUR ---
MS RN CLOSING NOTES NO SIGNIFICANT CHANGES IN PATIENT CONDITION THROUGHOUT THE SHIFT. NO SOB OR DISTRESS NOTED AT THIS TIME. PATIENT DENIES PAIN. PATIENT CURRENTLY SITTING UP IN CHAIR EATING. CALL LIGHT WITHIN REACH, FAMILY AT THE BEDSIDE. WILL ENDORSE FOR MARCE.
[2017-07-04 20:00] VITALS: BP 116/60
--- NOTE | 2017-07-04 20:00 | NUR ---
MS RN NOTES IS VERY MUCH CONCERN ABOUT SWELLING ON BOTH LEGS, WELL THE SCROTUM,THAT ITS BEEN GOING FOR 48 HOURS AND NOTHING HAS BEEN DONE.ITS WAS EXPLAINED TO HER THAT PATIENT WAS SEEN BY NEPHRO DOCTOR AND WILL STAR ON FLUID RESTRICTION,ELEVATION OF LOWER EXTREMITIES AND SEND OFF URINE FOR STUDY.BUT STILL WANTS TO SEE DOCTOR FOR FURTHER EVALUATION OF OF PATIENT.
--- NOTE | 2017-07-04 20:00 | NUR ---
MS RN NOTES RECEIVED SITTING COMFORTABLY ON BEDSIDE CHAIR,A/O X 2-3.NO SOB,NOTED EDEMA ON BOTH LOWER EXTREMITIES.AMBULATE WITH WALKER,ASSISTED. AT BEDSIDE.CALL LIGHT I REACH,NEEDS ANTICIPATED.
--- NOTE | 2017-07-04 21:00 | NUR ---
MS RN NOTES MD LAMINATION BUILDER WAS JOSIAS AND ITS DR CURRY,CALLED BACK AND SPOKE TO PATIENT .WILL SEE PATIENT AT MIDNIGHT
--- NOTE | 2017-07-05 02:30 | NUR ---
MS RN NOTES MD VISIT SEEN BY DR CURRY,SPOKE TO PATIENT ,NO NEW ORDERS.
[2017-07-05] MEDS: ACETAMINOPHEN 325 MG TABLET PO SCH ×4 (05:27→17:16)
[2017-07-05 06:43] LABS: BASOPHILS % (AUTO) 0.2 % (0.0-2.0); EOSINOPHILS # (AUTO) 0.2 /CMM (0.0-0.7); HEMATOCRIT 34 % (39-51); LYMPHOCYTES # (AUTO) 10.6 /CMM (0.8-4.8); LYMPHOCYTES % (AUTO) 52.3 % (20.0-44.0); MEAN CORPUSCULAR HEMOGLOBIN 32 PG (26.0-33.0); MEAN CORPUSCULAR HGB CONC 35 g/dl (31.0-36.0); MEAN CORPUSCULAR VOLUME 90 fL (80-96); MONOCYTES # (AUTO) 1.8 /CMM (0.1-1.30); MONOCYTES % (AUTO) 8.9 % (2.0-12.0); NEUTROPHILS # (AUTO) 7.6 /CMM (1.8-8.9); NEUTROPHILS % (AUTO) 37.6 % (43.0-81.0); PLATELET COUNT (AUTO) 111 /CMM (150-450); RDW COEFFICIENT OF VARIATION 15.8 (11.5-15.0); RED BLOOD CELL COUNT(AUTO) 3.81 MIL/uL (4.5-6.0); WHITE BLOOD COUNT (AUTO) 20.2 K/uL (4.3-11.0)
[2017-07-05 07:06] LABS: CALCIUM, SERUM 8.5 mg/dL (8.5-10.1); CARBON DIOXIDE 22 mmol/L (21-32); CHLORIDE 89 mmol/L (98-107); CREATININE 0.9 mg/dL (0.6-1.3); GLUCOSE 78 mg/dL (74-106); PHOSPHORUS 3.4 mg/dL (2.5-4.9); SODIUM SERUM 121 mmol/L (136-145); UREA NITROGEN, BLOOD 23 mg/dL (7-18)
--- NOTE | 2017-07-05 07:07 | NUR ---
MS RN NOTES A/O X2-3.BILATERAL LEGS REMAINS SWOLLEN,ELEVATED ON PILLOWS.FLUID RESTRICTIONS EMPHASIZED.POSSIBLE D/C TODAY.IN NO ACUTE DISTRESS.WILL ENDORSE TO DAY NURSE FOR MARCE.
--- NOTE | 2017-07-05 07:19 | NUR ---
RN NOTES PT IS AWAKE IN BED IN HIGH-FOWLERS POSITION. NO SIGNS OF DISTRESS OR PAIN AT THIS TIME. LEG SWELLING BILATERALLY, PLACED ON PILLOWS. IV ON L WRIST, INTACT AND PATENT. SAFETY MEASURES ARE IN PLACE. WILL CONTINUE TO MONITOR.
[2017-07-05 08:00] VITALS: BP 120/66
[2017-07-05] MEDS: BOOST PLUS FOOD-VANILLA 237 ML BOX PO SCH ×2 (08:18→16:21)
[2017-07-05] MEDS: LACTOBACILLUS RHAMNOSUS GG 1 EACH CAP.SPRINK PO SCH ×2 (08:20→16:21)
[2017-07-05] MEDS: PANTOPRAZOLE 40 MG TABLET.DR PO SCH (08:20)
[2017-07-05] MEDS: MULTIVITAMINS,THERAGRAN 1 UDTAB TABLET PO SCH (08:20)
[2017-07-05] MEDS: GABAPENTIN 100 MG CAPSULE PO SCH ×3 (08:20→16:21)
[2017-07-05] MEDS: NAPROXEN 250 MG TABLET PO SCH ×3 (08:20→16:21)
[2017-07-05] MEDS: SODIUM CHLORIDE 1000 MG TABLET.SOL PO SCH ×3 (08:56→20:59)
--- NOTE | 2017-07-05 09:00 | NUR ---
ELEVATED WBC 20.2 LOW SODIUM LEVEL 121 PATIENT IS SEEN BY JAYDE TODAY, ASSISTED PATIENT TO WALK WITH THE WALKER WITH 2 PERSONS ASSIST, PATIENT TOLERATED AMBULATION WELL, ASSISTED BACK TO HIS ROOM AND SAT DOWN IN THE CHAIR, NO C/O PAIN OR ANY DISCOMFORT. WILL CONT TO MONITOR.
--- NOTE | 2017-07-05 09:53 | NUR ---
DR. MARQUEZ ORDERED URINE SODIUM AND OSMOLALITY URINE, WILL COLLECT SPECIMEN. JAYDE MADE AWARE, PER [facility] TREASURER HOLD D/C PER NEPHROLOGY.
--- NOTE | 2017-07-05 13:02 | NUR ---
URINE SPECIMEN SENT TO THE LAB FOR TEST. SCHEDULED MEDS NEURONTIN, TYLENOL NON ADMINISTERED, VALARIE- REFUSED, EDUCATE FAMILY ABOUT THE IMPORTANCE, RISK AND BENEFITS OF THE MEDICATIONS, STILL REFUSED. PER IT CAUSES SWELLING TO PATIENTS LEGS. GINNA-ENZO MADE AWARE.
--- NOTE | 2017-07-05 14:59 | NUR ---
PHONE CALL FROM JAMEL STATED HE IS THE SON OF THE PATIENT, WANTING TO SPEAK TO THE PATIENT WITHOUT PATIENTS INVOLVEMENT. JAMEL IS NOT LISTED IN THE PERSON TO NOTIFY NEITHER THE NEXT OF KIN. SOCIAL SERVICE TO CONSULT, JAMEL VERBALIZED UNDERSTANDING. WILL ENDORSE TO NEXT SHIFT RN, CHARGE NURSE MADE AWARE.
[2017-07-05 16:00] VITALS: BP 127/64
--- NOTE | 2017-07-05 18:25 | NUR ---
PT IS AWAKE IN BED IN SEMI-FOWLERS POSITION WITH AT BEDSIDE. IV ON L WRIST INTACT AND PATENT. PT IS ON ROOM AIR, NO SOB OR SIGNS OF DISTRESS. PT HAS NO COMPLAINTS OF PAIN. SAFETY MEASURES ARE IN PLACE. WILL ENDORSE TO HOT MILL WORKER RN FOR CONTINUITY OF CARE.
[2017-07-05 18:35] LABS: URINE SODIUM, RANDOM 5 mmol/l (40-220)
[2017-07-05 18:46] LABS: OSMOLALITY,URINE 184 mOS/kg (340-1090)
--- NOTE | 2017-07-05 19:35 | NUR ---
MS RN NOTE RECEIVED PATIENT FROM DAY SHIFT, PATIENT IS ALERT AND ORIENTEDX3, FORGETFUL, DENIES RESPIRATORY DISTRESS OR PAIN AT THIS TIME. IV ON LEFT WRIST IS PATENT AND INTACT, HL ONLY. AT BED SIDE AT THIS TIME. SRX2, BED IN LOW POSITION, CALL LIGHT WITHIN REACH, WILL CONTINUE TO MONITOR PATIENT.
[2017-07-05 20:00] VITALS: BP 103/59
[2017-07-06] MEDS: ACETAMINOPHEN 325 MG TABLET PO SCH ×5 (00:11→23:43)
[2017-07-06] MEDS: SODIUM CHLORIDE 1000 MG TABLET.SOL PO SCH ×5 (05:13→21:00)
--- NOTE | 2017-07-06 05:15 | NUR ---
MS KASSIE NOTE COLLECTED CLEAN CATCH URINE SAMPLE, SENT TO THE LAB.
[2017-07-06 07:00] LABS: URINE SODIUM, RANDOM 12 mmol/l (40-220)
--- NOTE | 2017-07-06 07:17 | NUR ---
RN NOTES RECEIVED PT IN BED, SLEEPING. NO SIGNS OF DISTRESS OR SOB. SAFETY MEASURES ARE IN PLACE. WILL CONTINUE TO MONITOR.
--- NOTE | 2017-07-06 07:22 | NUR ---
MS RN NOTE PATIENT IS RESTING IN BED COMFORTABLY, NO S/S OF RESPIRATORY DISTRESS OR PAIN AT THIS TIME. MORNING CARE RENDERED. ENDORSE TO DAY SHIFT NURSE FOR MARCE.
[2017-07-06 07:57] LABS: OSMOLALITY,URINE 242 mOS/kg (340-1090)
[2017-07-06 08:00] VITALS: BP 146/75
[2017-07-06 08:15] LABS: CALCIUM, SERUM 8.3 mg/dL (8.5-10.1); CARBON DIOXIDE 26 mmol/L (21-32); CHLORIDE 92 mmol/L (98-107); CREATININE 0.9 mg/dL (0.6-1.3); GLUCOSE 79 mg/dL (74-106); POTASSIUM 4.4 mmol/L (3.5-5.1); SODIUM SERUM 124 mmol/L (136-145); UREA NITROGEN, BLOOD 20 mg/dL (7-18)
[2017-07-06] MEDS: LACTOBACILLUS RHAMNOSUS GG 1 EACH CAP.SPRINK PO SCH ×2 (08:27→16:23)
[2017-07-06] MEDS: GABAPENTIN 100 MG CAPSULE PO SCH ×3 (08:27→16:23)
[2017-07-06] MEDS: PANTOPRAZOLE 40 MG TABLET.DR PO SCH (08:27)
[2017-07-06] MEDS: NAPROXEN 250 MG TABLET PO SCH ×3 (08:27→16:23)
[2017-07-06] MEDS: MULTIVITAMINS,THERAGRAN 1 UDTAB TABLET PO SCH (08:27)
--- NOTE | 2017-07-06 08:45 | NUR ---
PT WAS OFFERED ORDERED MORNING MEDICATIONS. PT WAS INFORMED ON WHAT THEY WERE FOR AND PT UNDERSTOOD AND AGREED TO TAKE THEM. WILL CONTINUE TO MONITOR FOR UNDERSTANDING AND COMPLIANCE.
--- NOTE | 2017-07-06 09:05 | NUR ---
RN NOTES RECEIVED CALL FROM PATIENT'S X2, REPEATEDLY STATES "HOLD ALL MORNING MEDICATIONS FOR HIM, DO NOT GIVE HIM ANYTHING" EXPLAINED TO STANDARD PROTOCOL FOR MEDICATION ADMINISTRATION, PATIENT IS ALERT AND ORIENTED X3 AT THIS TIME ABLE TO MAKE NEEDS KNOWN. MEDICATIONS OFFERED AND EXPLAINED STANDARD PROTOCOL WITH CONTINUED MONITORING ORDERED BY HOSPITALIST. CONTINUES TO STATE "DO NOT GIVE MEDICATIONS, IT IS IRRESPONSIBLE" REINFORCED NURSING EDUCATION AND EXPLAINED TREATMENT RECOMMENDED AND REVIEWED BY INTERDISCIPLINARY TEAM
[2017-07-06] MEDS: BOOST PLUS FOOD-VANILLA 237 ML BOX PO SCH ×2 (09:51→16:23)
[2017-07-06] MEDS: CEPHALEXIN MONOHYDRATE 500 MG CAPSULE PO SCH ×3 (09:51→22:25)
--- NOTE | 2017-07-06 10:10 | NUR ---
PT WAS INFORMED OF KEFLEX MEDICATION PURPOSE. PTS REFUSED ON BEHALF OF . STATES "DO NOT GIVE ANY MEDICATIONS".
--- NOTE | 2017-07-06 10:43 | NUR ---
SCHUYLER contacted APS office in [place] and spoke to APS director social Reginaldo to inquire if pt. has been assigned a case. According to Reginaldo, pt. has been assigned to APS director social Shirley . SCHUYLER contacted Shirley and left him a voicemail message requesting a call back as soon as possible. SCHUYLER was informed by BRENDA Holloway that pt's son had come to the hospital yesterday but was not able to see the pt. stating that the pt's will become upset. Pt's son had to call several hospitals to inquire the whereabouts of the pt. SCHUYLER notified ANDRA Kelly regarding the name and phone number to APS worker assigned to the case.
--- NOTE | 2017-07-06 12:10 | NUR ---
RN NOTES RECEIVED CALL FROM DAUGHTER, JORDAN, REQUESTING INFORMATION REGARDING PATIENT'S STATUS INFORMED DAUGHTER RN IS UNABLE TO GIVE MEDICAL INFORMATION WHEN ASKED SPEAKS FOR PATIENT AND DOES NOT WANT INFORMATION GIVEN TO FAMILY MEMBERS. DAUGHTER, JORDAN, LEFT HER TELEPHONE NUMBER AND REQUESTS TO BE INFORMED ABOUT PT STATUS IF HER DAD IS OKAY WITH IT,
--- NOTE | 2017-07-06 12:40 | NUR ---
RN NOTES PATIENT'S STATES "I SPOKE TO JIM, HE SAID HE WILL STOP ALL MEDICATIONS AND GIVE HIM LASIX, I DONT WANT HIM TO TAKE ANYTHING ELSE" INFORMED THAT RN WILL CONFIRM WITH HOSPITALIST AND CLARIFY ORDERS
--- NOTE | 2017-07-06 12:45 | NUR ---
RN NOTES REQUESTING FROM RN TO HOLD ALL MEDICATIONS AND ONLY GIVE LASIX, IF PATIENT COMPLAINS OF DISCOMFORT TO GIVE MORPHINE, INFORMED THAT RN WILL ASSESS PATIENT FOR PAIN OR DISCOMFORT AND ADMINISTER PRN MEDICATIONS APPROPRIATELY ORDERED.
--- NOTE | 2017-07-06 12:50 | NUR ---
RN NOTES RN SPOKE TO HOSPITALIST TO CLARIFY ORDERS, PER HOSPITALIST HE IS NOT GIVING A DISCONTINUATION OF MEDICATION ORDERS PART OF TREATMENT PLAN, PATIENT HAS A RIGHT TO REFUSE MEDICATIONS IF HE DOES NOT WANT TO TAKE THEM. RN TO CONTINUE TO MONITOR AND INFORM HOSPITALIST OF ANY CHANGES
--- NOTE | 2017-07-06 12:50 | NUR ---
RN NOTES PTS IS REFUSING TO LET HER (THE PT) TAKE ANY OF THE MEDICATIONS ORDERED BESIDE LASIX.
[2017-07-06] MEDS: FUROSEMIDE 20 MG TABLET PO SCH (12:51)
--- NOTE | 2017-07-06 13:15 | NUR ---
FERN GIRALDO MADE AWARE OF PATIENTS INCREASED WEAKNESS AND DROWSINESS. HE WANTS TO CONTINUE TO MONITOR THE PT FOR ANY CHANGES.
--- NOTE | 2017-07-06 15:18 | NUR ---
SITTER (ISAAC) IN THE ROOM WITH PT AND . ISAAC STATES INSISTS ON GETTING PT UP DESPITE INCREASED WEAKNESS.
--- NOTE | 2017-07-06 15:42 | NUR ---
SCHUYLER contacted pt's son Moisés Forman per his request. Moisés informed SCHUYLER, he is very worried about his father. Pt's Nyla has socially isolated pt. from his four children, 13 grandchildren and all his friends. 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 Moisés informed SCHUYLER that pt's house is in deplorable conditions and pt's is a hoarder. Pt. mostly lives in his motor home or in his den. According to Moisés, him and his sister have been trying to contact the pt. at home for the past two weeks and have not heard from pt. or pt' was not answering any of their calls. Moisés showed up at pt's house and confronted pt's Nyla regarding his dad's whereabouts. Nyla did not share the information with Moisés and informed him that he is hospitalized due to a heart attack and needs surgery, which was not accurate. Moisés informed SCHUYLER that pt. has always been very active and was playing tennis 4 to 5 days per week prior to hospitalization. Moisés informed SCHUYLER that on Thursday during his visit to the hospital, pt. had made an excuse to go to the bathroom to tell the RN to tell his son to not leave because he needs to speak with him when Nyla is not in the room. Moisés stated he waited for 5 hours in the parking area, however left due to Nyla not leaving pt's bedside. Moisés states Nyla is very controlling of the pt. and the pt. is fearful of her. SCHUYLER also spoke to Moisés's rajesh Maher, who also reiterated the information Moisés gave SCHUYLER. SCHUYLER did inform them both an APS report was filed on Monday July 03, 2017 and the case has been assigned to APS social media project manager Shirley. SCHUYLER did inform Moisés, she has already left a message for the APS worker Shirley . SCHUYLER discussed aforementioned information with ANDRA Kelly and porter sample case Ana.
--- NOTE | 2017-07-06 16:24 | NUR ---
PT AND WERE INFORMED OF MEDICATIONS THAT WERE ORDERED AT THIS TIME. REFUSES FOR THE PT TO NOT TAKE ANY MEDICATIONS BESIDE LASIX.
--- NOTE | 2017-07-06 16:55 | NUR ---
RN NOTES PATIENT'S REQUESTING ON BEHALF OF PATIENT TO BE GIVEN MILK OF MAGNESIA PER PATIENT HAS NOT HAD A BOWEL MOVEMENT FOR 3 DAYS, RN REVIEWED PATIENTS CHART TO ASSESS FOR NEED, PATIENT WITH DOCUMENTED BOWEL MOVEMENTS YESTERDAY. RN ALSO ASSESSED PT NOTED WITH POSITIVE BOWEL SOUNDS, NO ABDOMINAL DISTENTION OR TENDERNESS PER PT HAD BOWEL MOVEMENT YESTERDAY INFORMED PATIENT'S THAT MILK OF MAGNESIA IS ORDERED FOR NO BM X3 DAYS PER SECONDARY MARKET MANAGER PATIENT MAY HAVE PRUNE JUICE AND CONTINUE TO MONITOR, EXPLAINED TO . " CONTINUES TO REPEATEDLY STATE, I NEED TO TALK TO JIM AND I NEED MILK OF MAGNESIA NOW" NURSING EDUCATION REINFORCED, PATIENT WILL BE CONTINUED TO BE MONITORED AT THIS TIME
[2017-07-06] MEDS ORDERED: MAGNESIUM HYDROXIDE 30 ML UDC PO PRN (17:30)
--- NOTE | 2017-07-06 19:05 | NUR ---
PT IS IN BED AWAKE AND ALERT. IV ON L WRIST INTACT AND PATENT. AND 1:1 SITTER IN THE ROOM. PT ON O2 VIA NASAL CANNULA AT 2L, SATING 95%. PT WITH GENERALIZED WEAKNESS, NO SIGNS OF DISTRESS OR PAIN. SAFETY MEASURES ARE IN PLACE. WILL ENDORSE TO LAPPING MACHINE SET UP OPERATOR RN FOR CONTINUITY OF CARE.
--- NOTE | 2017-07-06 19:30 | NUR ---
MS RN NOTE RECEIVED PATIENT FROM DAY SHIFT, PATIENT IS ALERT AND ORIENTEDX3, FORGETFUL, NO S/S OF RESPIRATORY DISTRESS OR PAIN AT THIS TIME. IV ON LEFT WRIST IS PATENT AND INTACT, HL ONLY. AT BED SIDE AT THIS TIME. SRX2, BED IN LOW POSITION, CALL LIGHT WITHIN REACH, WILL CONTINUE TO MONITOR PATIENT.
--- NOTE | 2017-07-06 19:50 | NUR ---
MS RN NOTE PATIENT'S REQUESTED TO CALL ARABELLA DURON FOR INCREASING DOSE OF LASIX, AND WANTS TO SPEAK WITH ELASTIC CUTTER ENZO REGARDING HOLD ALL OF HIS MEDICATIONS. SHE ALSO STATED THAT THIS IS EMERGENCY SITUATION THAT PATIENT IS HYPERVENTILATING. ASSESSED THE PATIENT, VS WNL 113/67, PULSE 80 RR 18 TEMP 98.7F SAT 94% WITH 2L/MIN O2, NON-LABORED BREATHING NOTED. EDUCATED PATIENT'S THAT WE WILL KEEP MONITORING HIS CONDITION AND PROVIDED EDUCATION TO HER THAT HIS NA AND ALBUMIN LEVEL IS LOW, THERE ARE RISKS TO INCREASE LASIX AT THIS TIME.
[2017-07-06 20:00] VITALS: BP 113/67
--- NOTE | 2017-07-06 21:50 | NUR ---
MS RN NOTE PATIENT'S STRONGLY INSISTED THAT PT NEEDS MORE LASIX EVEN AFTER REPETITIVE EDUCATION TO HIS , SHE ALSO DOESN'T WANT HIM TO TAKE NACL PO AT THIS TIME. SHE WANTS TO CALL DR. KHALIL, AND GET AN ORDER OF ANOTHER DOSE OF LASIX, KEEPS INSISTING THAT SHE WANTS TO SPEAK WITH THE DOCTOR DIRECTLY. CONTACTED [facility] AND SPOKE WITH ONCALL DR. KHALIL, REPORTED ABOUT THE SITUATION, GOT AN ORDER OF LASIX 20MG PO ONCE NOW. ORDERS PUT IN AND WILL ADMINISTER.
[2017-07-06] MEDS ORDERED: FUROSEMIDE 20 MG TABLET PO ONE (22:00)
[2017-07-07] MEDS: ACETAMINOPHEN 325 MG TABLET PO SCH ×2 (06:00→11:43)
--- NOTE | 2017-07-07 06:55 | NUR ---
MS RN NOTE PATIENT IS SLEEPING IN BED, NO S/S OF RESPIRATORY DISTRESS OR FACIAL GRIMACE NOTED. MORNING CARE RENDERED. WILL ENDORSE TO DAY SHIFT NURSE FOR MARCE.
[2017-07-07 07:10] LABS: BASOPHILS # (AUTO) 0.1 /CMM (0.0-0.2); BASOPHILS % (AUTO) 0.3 % (0.0-2.0); EOSINOPHILS # (AUTO) 0.1 /CMM (0.0-0.7); EOSINOPHILS % (AUTO) 0.5 % (0.0-6.0); HEMATOCRIT 32 % (39-51); HEMOGLOBIN 11.1 g/dL (13.5-17.5); LYMPHOCYTES # (AUTO) 11.1 /CMM (0.8-4.8); LYMPHOCYTES % (AUTO) 52.5 % (20.0-44.0); MEAN CORPUSCULAR HEMOGLOBIN 32 PG (26.0-33.0); MEAN CORPUSCULAR HGB CONC 35 g/dl (31.0-36.0); MEAN CORPUSCULAR VOLUME 90 fL (80-96); MONOCYTES # (AUTO) 2.4 /CMM (0.1-1.30); MONOCYTES % (AUTO) 11.3 % (2.0-12.0); NEUTROPHILS # (AUTO) 7.5 /CMM (1.8-8.9); NEUTROPHILS % (AUTO) 35.4 % (43.0-81.0); PLATELET COUNT (AUTO) 142 /CMM (150-450); RDW COEFFICIENT OF VARIATION 16.5 (11.5-15.0); RED BLOOD CELL COUNT(AUTO) 3.51 MIL/uL (4.5-6.0); WHITE BLOOD COUNT (AUTO) 21.1 K/uL (4.3-11.0)
[2017-07-07 07:27] LABS: ALANINE AMINOTRANSFERASE 34 U/L (12-78); ASPARTATE AMINOTRANSFERASE 50 U/L (15-37); BILIRUBIN,TOTAL 0.8 mg/dL (0.2-1.0); CALCIUM, SERUM 8.4 mg/dL (8.5-10.1); CARBON DIOXIDE 26 mmol/L (21-32); CHLORIDE 91 mmol/L (98-107); CREATININE 0.9 mg/dL (0.6-1.3); GLUCOSE 78 mg/dL (74-106); MAGNESIUM 1.8 mg/dL (1.8-2.4); PHOSPHORUS 3.4 mg/dL (2.5-4.9); SODIUM SERUM 123 mmol/L (136-145); UREA NITROGEN, BLOOD 20 mg/dL (7-18)
--- NOTE | 2017-07-07 07:30 | NUR ---
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 PATIENT DENIES SOB, DIFFICULTY BREATHING AND CHRONIC DULL DISCOMFORT IN KIDNEYS/ABDOMEN. PATIENT REPOSITIONED TO INCREASED COMFORT AND ALL NEEDS IN REACH. ASSISTED FOR PATIENT TO DRINK WATER. EDUCATED ON 1 LITER WATER RESTRICTION PER MD AND PATIENT STATES UNDERSTANDING. PATIENT UPDATED ON CARE PLAN AND SITTER AT SIDE. IV INTACT PATENT NO S/S INFILTRATION. BED LOWERED AND LOCKED, RAILS UPX3 FOR SAFETY AND BED ALARM ON. WILL ROUND Q2H OR LESS PER NEEDS. HEELS AND ELBOWS OFFLOADED
[2017-07-07 07:38] LABS: ALKALINE PHOSPHATASE 88 U/L (46-116)
[2017-07-07 08:00] VITALS: BP 130/71
[2017-07-07] MEDS: CEPHALEXIN MONOHYDRATE 500 MG CAPSULE PO SCH ×2 (08:32→20:22)
[2017-07-07] MEDS: NAPROXEN 250 MG TABLET PO SCH (08:33)
[2017-07-07] MEDS: MULTIVITAMINS,THERAGRAN 1 UDTAB TABLET PO SCH (08:33)
[2017-07-07] MEDS: LACTOBACILLUS RHAMNOSUS GG 1 EACH CAP.SPRINK PO SCH ×2 (08:33→16:51)
[2017-07-07] MEDS: PANTOPRAZOLE 40 MG TABLET.DR PO SCH (08:34)
[2017-07-07] MEDS: FUROSEMIDE 20 MG TABLET PO SCH ×2 (08:34→16:51)
[2017-07-07] MEDS: SODIUM CHLORIDE 1000 MG TABLET.SOL PO SCH (08:35)
--- NOTE | 2017-07-07 08:45 | NUR ---
MS RN NOTES PHYSICAL THERAPY AT BEDSIDE. PATIENT WALKED 40 FEET AND ASSISTED TO CHAIR FOR BREAKFAST. PATIENT STABLE AT THIS TIME.
[2017-07-07] MEDS: BOOST PLUS FOOD-VANILLA 237 ML BOX PO SCH ×2 (08:55→16:48)
[2017-07-07 09:35] LABS: BAND % (MANUAL) 5 % (0.0-5.0); LYMPHOCYTES % (MANUAL) 41 % (16-48); MONOCYTES % (MANUAL) 14 % (0-11.0); NEUTROPHILS % (MANUAL) 40 (42-76)
--- NOTE | 2017-07-07 09:53 | NUR ---
MS RN NOTES NOTIFIED DR RODRIGUEZ PATIENT COMPLAINING OF KIDNEY PAIN/ABD PAIN. MD WILL REVIEW MEDICATIONS AND UPDATE. NO NEW ORDERS AT THIS TIME.
--- NOTE | 2017-07-07 09:58 | NUR ---
SCHUYLER left a second voicemail message for [facility] social worker masters Shirley requesting a call back as soon as possible.
--- NOTE | 2017-07-07 10:15 | NUR ---
ms rn notes dr goldman at bedside
--- NOTE | 2017-07-07 10:30 | NUR ---
MS RN NOTES NOTIFIED MD NIKKO ROWAN OF PATIENT AND FAMILY CONCERNS OF GABAPENTIN/NAPROXEN/TYLENOL. PER MD AT THIS TIME OK TO DC GABAPENTIN. PATIENT AWARE NEEDING URINE SAMPLE. SITTER AT SIDE WILL ASSIST PATIENT
--- NOTE | 2017-07-07 12:08 | NUR ---
SCHUYLER contacted Shirley at [facility] again. Shirley informed SCHUYLER that he is not the case sealer and requested for SCHUYLER to contact the [place] field office. SCHUYLER called [facility] field office in [place] and left a voicemail message on their duty line and requested a call back.
--- NOTE | 2017-07-07 12:30 | NUR ---
MS RN NOTES URINE SAMPLE OBTAINED FROM PATIENT. READY FOR LAB PLAYBACK OPERATOR
--- NOTE | 2017-07-07 14:45 | NUR ---
MS RN NOTES DR ROWAN AT BEDSIDE AND ATTEMPTING TO UPDATE PATIENT AND AT BEDSIDE. IS CONTINUING TO INTERRUPT MD AND DEMANDING MEDICATIONS BE DISCONTINUED, DOSAGES BE CHANGED, AND CONTINUING TO TELL THE DOCTOR THEY ARE DANGEROUS" AND DO NOT KNOW WHAT THEY ARE DOING. STATES SHE HAS KNOWN THE PATIENT FOR OVER 20 YEARS AND WE DO NOT KNOW HIM. MD ATTEMPTED TO EXPLAIN THAT THEY ARE TREATING THE PATIENT OF NOW AND WHAT IS HAPPENING WITH HIM. CONTINUES TO CUT MD OFF AND STATE SHE IS CORRECT BECAUSE SHE HAS GOOGLED INFORMATION. APPEARS TO BE RECORDING/VOICE RECORDING CONVERSATION WITHOUT CONSENT. ALSO DEMANDING PROGRESS NOTES AND LABS WHEN ALREADY INFORMED OF OUR POLICIES ON HOW TO RECEIVE THESE PAPERS. DEMANDING MD CELL PHONE NUMBERS. PER MD ORDER EC TEACHER/DONOR SERVICES TECHNICIAN TO COME TO ROOM IS IMPEDING IN PATIENT CARE AND A DANGER TO PATIENT.
--- NOTE | 2017-07-07 14:45 | NUR ---
Bianca Rangel contacted SCHUYLER informing her that Pt' s Nyla was videotaping Dr. Carl Burr while he was speaking to her and the pt. Dr. Carl Burr requested for pt. to erase the recording since it was without his permission. Pt' s refused. SCHUYLER, ANDRA Kelly, Nursing supervisor painting shipyard BRENDA Freire and head of security Sarabjit met with pt's bedside and requested for her to erase the recording. Nyla began screaming and yelling at everyone in the room and told SCHUYLER " Balooch, you shut up". Sarabjit informed Nyla she is to be escorted by security out of the hospital and starting from today she is only allowed one hour per day for visitation accompanied by security. Nyla was escorted out of the hospital by Sarabjit and another information security risk analyst. After pt's left, SCHUYLER met with pt. to inquire about his wellbeing and to ask him if he would like to speak to his son Moisés. Pt. replied stating " he is in no position to speak to anyone". SCHUYLER did contact pt's son and left him a voicemail message to return SW's call. SCHUYLER also spoke to pt's daughter Janet Contreras regarding pt's wellbeing.
--- NOTE | 2017-07-07 15:33 | NUR ---
SW spoke to [facility] social work instructor Shirley Danielle / who is assigned to the pt. SW discussed the issues involving pt's Nyla interfering with plan of care and being disruptive. APS worker Shirley informed SW he will come to [facility] tomorrow to visit with pt. and SCHUYLER.
[2017-07-07 15:56] LABS: FREE PSA 0.41 ng/mL (0.00-45); PROSTATE SPECIFIC ANTIGEN SCR 2.23 ng/mL (0.00-4.00)
[2017-07-07 16:00] VITALS: BP 105/67
--- NOTE | 2017-07-07 16:00 | NUR ---
MS RN NOTES INFORMED PATIENT SON EBONY ON PHONE AND PER PATIENT HE DOESNT THINK ITS BEST TO SPEAK WITH ANYONE, HE DOESNT WANT TO SAY ANYTHING..
[2017-07-07] MEDS: ACETAMINOPHEN 325 MG TABLET PO PRN (18:08)
--- NOTE | 2017-07-07 19:04 | NUR ---
MS RN NOTES NOTIFIED DR MAGAÑA PATIENT NOT EATING MEALS AND C/O CONSTIPATION. PER MD ORDER COLACE 100MG PO TID
--- NOTE | 2017-07-07 19:22 | NUR ---
MS RN CLOSING PATIENT UP IN CHAIR STABLE AT THIS TIME. PATIENT TOLERATED ALL YEYO MEDICATIONS NO COMPLICATIONS. ALL NEEDS MET. NEEDS IN REACH. SITTER AT BEDSIDE AND CALL LIGHT IN REACH. RN UPDATED ON PATIENT CONDITION AND VISITING RESTRICTIONS FOR PATIENT VALARIE. CARE ENDORSED TO RN FOR MARCE.
--- NOTE | 2017-07-07 19:45 | NUR ---
MS RN INITIAL NOTE RECEIVED PATIENT FROM DAY SHIFT, PATIENT IS ALERT AND ORIENTEDX3, FORGETFUL AND [place]. PT IS IN CHAIR STILL WORKING ON HIS DINNER TRAY. NO S/S OF RESPIRATORY DISTRESS OR PAIN AT THIS TIME. IV ON LEFT WRIST IS PATENT AND INTACT, HL. CALL LIGHT WITHIN REACH, WILL CONTINUE TO MONITOR PATIENT.
[2017-07-07 20:00] VITALS: BP 102/63
--- NOTE | 2017-07-08 06:51 | NUR ---
MS RN CLOSING NOTE PATIENT IS SLEEPING IN BED, NO S/S OF RESPIRATORY DISTRESS OR FACIAL GRIMACE NOTED. MORNING CARE RENDERED. BED IS IN LOW AND LOCKED POSITION, CALL LIGHT WITHIN REACH. WILL ENDORSE TO DAY SHIFT.
--- NOTE | 2017-07-08 07:40 | NUR ---
RN MS NOTES PATIENT IN BED, ALERT AND ORIENTED, FORGETFUL, HARD OF HEARING, NO DISTRESS NOTED AT THIS TIME, BREATHING EVEN AND UNLABORED, NO SOB, ON FLUID RESTRICTION, NEEDS ATTENDED AND ANTICIPATED, BED LOW AND LOCKED, SIDERAILS X2 UP, BED ALARM ON, CALL LIGHT WITHIN REACH, WILL CONTINUE TO MONITOR.
[2017-07-08 07:47] LABS: ALANINE AMINOTRANSFERASE 35 U/L (12-78); ALKALINE PHOSPHATASE 90 U/L (46-116); ASPARTATE AMINOTRANSFERASE 51 U/L (15-37); BILIRUBIN,TOTAL 0.9 mg/dL (0.2-1.0); CALCIUM, SERUM 8.5 mg/dL (8.5-10.1); CARBON DIOXIDE 27 mmol/L (21-32); CHLORIDE 91 mmol/L (98-107); GLUCOSE 84 mg/dL (74-106); MAGNESIUM 1.6 mg/dL (1.8-2.4); PHOSPHORUS 3.7 mg/dL (2.5-4.9); POTASSIUM 4.2 mmol/L (3.5-5.1); SODIUM SERUM 125 mmol/L (136-145); TOTAL PROTEIN, SERUM 5.1 g/dL (6.4-8.2); UREA NITROGEN, BLOOD 25 mg/dL (7-18)
[2017-07-08 07:51] LABS: BASOPHILS # (AUTO) 0.1 /CMM (0.0-0.2); BASOPHILS % (AUTO) 0.3 % (0.0-2.0); EOSINOPHILS # (AUTO) 0.1 /CMM (0.0-0.7); EOSINOPHILS % (AUTO) 0.6 % (0.0-6.0); HEMATOCRIT 34 % (39-51); HEMOGLOBIN 11.5 g/dL (13.5-17.5); LYMPHOCYTES # (AUTO) 12.3 /CMM (0.8-4.8); LYMPHOCYTES % (AUTO) 50.2 % (20.0-44.0); MEAN CORPUSCULAR HEMOGLOBIN 31 PG (26.0-33.0); MEAN CORPUSCULAR HGB CONC 34 g/dl (31.0-36.0); MEAN CORPUSCULAR VOLUME 91 fL (80-96); MONOCYTES # (AUTO) 2.5 /CMM (0.1-1.30); MONOCYTES % (AUTO) 10.3 % (2.0-12.0); NEUTROPHILS # (AUTO) 9.5 /CMM (1.8-8.9); NEUTROPHILS % (AUTO) 38.6 % (43.0-81.0); PLATELET COUNT (AUTO) 171 /CMM (150-450); RDW COEFFICIENT OF VARIATION 17.1 (11.5-15.0); RED BLOOD CELL COUNT(AUTO) 3.71 MIL/uL (4.5-6.0); WHITE BLOOD COUNT (AUTO) 24.5 K/uL (4.3-11.0)
[2017-07-08 08:00] VITALS: BP 121/68
[2017-07-08] MEDS: LACTOBACILLUS RHAMNOSUS GG 1 EACH CAP.SPRINK PO SCH ×2 (09:17→17:05)
[2017-07-08] MEDS: CEPHALEXIN MONOHYDRATE 500 MG CAPSULE PO SCH ×2 (09:17→21:00)
[2017-07-08] MEDS: FUROSEMIDE 20 MG TABLET PO SCH ×2 (09:17→17:05)
[2017-07-08] MEDS: PANTOPRAZOLE 40 MG TABLET.DR PO SCH (09:17)
[2017-07-08] MEDS: DOCUSATE SODIUM LIQ 100 MG/10 ML UDC PO SCH ×3 (09:17→17:05)
[2017-07-08] MEDS: BOOST PLUS FOOD-VANILLA 237 ML BOX PO SCH ×2 (09:19→17:05)
[2017-07-08] MEDS: MULTIVITAMINS,THERAGRAN 1 UDTAB TABLET PO SCH (09:23)
--- NOTE | 2017-07-08 09:30 | NUR ---
RN MS NOTES PATIENT AMBULATED WITH PHYSICAL THERAPY, PER PT, RECOMMENDATIONS FOR DISCHARGE IS SNF, NOT ARU.
[2017-07-08 10:12] LABS: OSMOLALITY,SERUM 260 mOS/kg (278-305)
[2017-07-08 10:47] LABS: NEUTROPHILS % (MANUAL) 29 (42-76)
[2017-07-08 10:48] LABS: MONOCYTES % (MANUAL) 1 % (0-11.0)
[2017-07-08 10:50] LABS: LYMPHOCYTES % (MANUAL) 69 % (16-48)
[2017-07-08] MEDS: Magnesium 1GM/D5W 100ML PREMIX 100 ML IV SCH ×2 (12:07→14:15)
--- NOTE | 2017-07-08 14:54 | NUR ---
SCHUYLER attempted to leave a message for APS SCHUYLER Danielle on his cellphone to inquire if he was coming today to [facility] as he had mentioned yesterday to SCHUYLER that he was coming to follow up on the APS report that was submitted on July 03, 2017. SCHUYLER was unable to leave a voicemail message due to Shirley's voicemail being full. SCHUYLER contacted APS social studies teacher at his office number and was informed that he is out in the field.
[2017-07-08 16:00] VITALS: BP 116/66
--- NOTE | 2017-07-08 16:20 | NUR ---
SCHUYLER, ANDRA Kelly, correctional casework specialist Mouna and [employer] director KASSIE Griffin met with APS social work supervisor Shirley Danielle to discuss issues regarding pt's . Shirley recommended for pt. to be conserved and gave SCHUYLER the capacity declaration form for conservatorship to be completed by pt's physician. Shirley requested for the form to be faxed to him once completed. Shirley informed the team, he will call pt's son Moisés tomorrow.
--- NOTE | 2017-07-08 18:33 | NUR ---
RN MS NOTES PATIENT IN BED, SLEEPING INTERMITTENTLY BUT EASILY AROUSABLE, PATIENT NOTED TO BE BRUSHING HIS OWN TEETH FOR 30 MINUTES, PIV ON LEFT WRIST PATENT AND FLUSHES WELL, PATIENT CONTINUES ON 1 LITER OF FLUID RESTRICTION, MAGNESIUM REPLACED, SON ALBER CALLED BUT PATIENT REFUSED TO TAKE THE CALL TWICE, ALL NEEDS ATTENDED AND ANTICIPATED, TURNED AND REPOSITIONED, URINAL OFFERED AT TIMES, BUT OTHER TIMES PATIENT USES DIAPER, SAFETY MEASURES IN PLACED, CALL LIGHT WITHIN REACH, WILL CONTINUE TO MONITOR.
--- NOTE | 2017-07-08 19:30 | NUR ---
MS/RN RECEIVE PATIENT APPEAR SLEEPING, AROUSABLE, APPEAR COMFORTABLE, NO SIGNS OF DISTRESS NOTED, SITTER AT BEDSIDE. WILL MONITOR.
[2017-07-08 20:00] VITALS: BP 122/71
--- NOTE | 2017-07-09 00:14 | NUR ---
MS/RN PATIENT IS SLEEPING AT THIS TIME, AROUSABLE, APPEAR COMFORTABLE, NO DISTRESS NOTED, CALL LIGHT IN REACH. WILL CONTINUE TO MONITOR.
--- NOTE | 2017-07-09 06:40 | NUR ---
MS/RN PATIENT SLEEPING, EASILY AROUSABLE, APPEAR COMFORTABLE, NO SIGNS OF DISTRESS NOTED. ALL NEEDS ATTENDED AT THIS TIME. WILL CONTINUE TO MONITOR.
[2017-07-09 06:50] LABS: CALCIUM, SERUM 8.1 mg/dL (8.5-10.1); CARBON DIOXIDE 26 mmol/L (21-32); CHLORIDE 93 mmol/L (98-107); CREATININE 0.9 mg/dL (0.6-1.3); GLUCOSE 87 mg/dL (74-106); POTASSIUM 3.9 mmol/L (3.5-5.1); SODIUM SERUM 128 mmol/L (136-145); UREA NITROGEN, BLOOD 22 mg/dL (7-18)
[2017-07-09 08:00] VITALS: BP 128/79
--- NOTE | 2017-07-09 08:05 | NUR ---
MS RN OPENING NOTE PATIENT IS ALERT AND ORIENTED x3. NO PAIN AT THIS TIME. NO SOB OR DISTRESS NOTED. CALL LIGHT WITHIN REACH. 3L/MIN OXYGEN VIA NASAL CANNULA. IV INTACT AND PATENT NO REDNESS OR SWELLING NOTED. SAFETY MEASURES IMPLEMENTED. ABLE TO COMMUNICATE NEEDS. ON FLUID RESTRICTIONS AND DAILY WEIGHT MONITORING. WILL CONTINUE TO MONITOR PATIENT.
[2017-07-09] MEDS: BOOST PLUS FOOD-VANILLA 237 ML BOX PO SCH ×2 (08:36→17:05)
[2017-07-09] MEDS: LACTOBACILLUS RHAMNOSUS GG 1 EACH CAP.SPRINK PO SCH ×2 (08:37→17:05)
[2017-07-09] MEDS: MULTIVITAMINS,THERAGRAN 1 UDTAB TABLET PO SCH (08:37)
[2017-07-09] MEDS: CEPHALEXIN MONOHYDRATE 500 MG CAPSULE PO SCH ×2 (08:37→21:30)
[2017-07-09] MEDS: DOCUSATE SODIUM LIQ 100 MG/10 ML UDC PO SCH ×3 (08:37→17:00)
[2017-07-09] MEDS: FUROSEMIDE 20 MG TABLET PO SCH ×2 (08:37→17:05)
[2017-07-09] MEDS: PANTOPRAZOLE 40 MG TABLET.DR PO SCH (08:37)
--- NOTE | 2017-07-09 14:21 | NUR ---
MS RN NOTE PATIENT REFUSED PHYSICAL THERAPY TODAY. TRIED MULTIPLE TRIES, EXPLAINED RISKS AND BENEFITS, PATIENT STILL REFUSED. INFORMED CHARGE NURSE. WILL CONTINUE TO MONITOR
[2017-07-09] MEDS: ACETAMINOPHEN 325 MG TABLET PO PRN (14:28)
--- NOTE | 2017-07-09 15:50 | NUR ---
RN NOTE PATIENT IS HEADED DOWN TO CT SCAN OF HEAD WITHOUT CONTRAST. PATIENT IS ALERT AND ORIENTEDX3. NO PAIN AT THIS TIME. NO SOB OR DISTRESS NOTED. ON 2L/MIN OXYGEN VIA NASAL CANNULA.
[2017-07-09 16:00] VITALS: BP 129/84
--- NOTE | 2017-07-09 16:03 | NUR ---
RN NOTE PATIENT IS BACK FROM CT SCAN. PATIENT IS STABLE. VITALS ARE STABLE. NO SOB OR DISTRESS NOTED. WILL CONTINUE TO MONITOR
--- NOTE | 2017-07-09 18:31 | NUR ---
MS RN CLOSING NOTE PATIENT IS ALERT AND ORIENTED X3. PATIENT HAS BEEN A LITTLE MORE CONFUSED TODAY, HAD TO REORIENT MULTIPLE TIMES. MADE MD AWARE DURING ROUNDING. NO PAIN AT THIS TIME. NO SOB OR DISTRESS NOTED. CALL LIGHT WITHIN REACH AT ALL TIMES. SAFETY MEASURES IMPLEMENTED. CT OF HEAD DONE, RESULTS PENDING. STILL AWAITING TO RECEIVE URINE CULTURE. IV INTACT AND PATENT NO REDNESS OR SWELLING NOTED. ALL DUE MEDICATIONS GIVEN ORDERED. WILL ENDORSE TO SPORTS MANAGEMENT INTERN NURSE
--- NOTE | 2017-07-09 19:45 | NUR ---
MS/COURT REPORTER; RECEIVED PT IN BED AWAKE, ALERT AND VERBALLY RESPONSIVE. PT SAID " HI " WHEN I TALKED TO HIM. BREATHING NON LABORED. DENIES PAIN. HL INTACT ON LWA # 22. WITH O2 1L NC ON. NOTED NO HEARING AIDS ON PT'S BOTH EARS. NOTED WITH DRY COUGH. BED ON LOWER POSITION AND LOCKED FOR SAFETY. SIDE RAILS ARE ALL UP FOR SAFETY. WILL CONTINUE TO MONITOR. CALL LIGHT WITHIN REACH.
--- NOTE | 2017-07-09 20:15 | NUR ---
MS/TRADE MARK EXAMINER; CHARGE NURSE TOLD ME THAT THE PT'S JUST CAME AT 2009 ESCORTED BY A FEMALE SECURITY TO THE ROOM.
--- NOTE | 2017-07-09 20:25 | NUR ---
MS/BOX CAR CHECKER; PT'S WAS TELLING AT THE NURSE'S STATION THAT SHE FOUND PT'S RT HEARING AID ON TOP OF THE BLANKET AND SHE PUT IT BACK TO THE PT'S RT EAR AND SHE WANTS ME TO FIND THE OTHER LT HEARING AID. I WENT TO THE ROOM TO CHECKED IT THE RT HEARING IS ON THE RT EAR AND IT IS ON THE RT EAR.
[2017-07-09 20:32] VITALS: BP 98/61
--- NOTE | 2017-07-09 20:45 | NUR ---
MS / RN TRAINING; I ASKED JUWAN THE CIVIL DRAFTING TECHNICIAN TO LOOK FOR THE OTHER LT HEARING AID WHILE HE IS CLEANING THE PT. THE PT'S STILL IN THE ROOM WITH THE SECURITY. NOW JUWAN FOUND THE HEARING AID ON THE FLOOR .
--- NOTE | 2017-07-09 21:10 | NUR ---
MS/MAINFRAME SYSTEMS PROGRAMMER; PT'S LEFT THE FLOOR WITH SECURITY.
[2017-07-09 21:37] LABS: APPEARANCE,URINE CLEAR (CLEAR); BILIRUBIN,URINE NEGATIVE (NEGATIVE); BLOOD, URINE TRACE-INTA Ery/uL (NEGATIVE); KETONES,URINE 1+ (NEGATIVE); LEUKOCYTE ESTERASE ,URINE TRACE (NEGATIVE); NITRITE, URINE NEGATIVE (NEGATIVE); PROTEIN,URINE NEGATIVE (NEGATIVE); UGLUCOSE NEGATIVE (NEGATIVE); UROBILINOGEN,URINE 0.2 EU/dL (0.2)
[2017-07-09 21:40] LABS: COLOR,URINE DARK YELLOW (YELLOW)
[2017-07-09 21:43] LABS: BACTERIA,URINE Rare /HPF (None Seen); SQUAMOUS EPITHELIAL CELL,UR Rare /HPF (None Seen)
[2017-07-10 06:38] LABS: BASOPHILS # (AUTO) 0.1 /CMM (0.0-0.2); BASOPHILS % (AUTO) 0.3 % (0.0-2.0); EOSINOPHILS # (AUTO) 0.1 /CMM (0.0-0.7); EOSINOPHILS % (AUTO) 0.2 % (0.0-6.0); HEMATOCRIT 36 % (39-51); HEMOGLOBIN 12.2 g/dL (13.5-17.5); LYMPHOCYTES # (AUTO) 12.8 /CMM (0.8-4.8); LYMPHOCYTES % (AUTO) 50.6 % (20.0-44.0); MEAN CORPUSCULAR HEMOGLOBIN 31 PG (26.0-33.0); MEAN CORPUSCULAR HGB CONC 34 g/dl (31.0-36.0); MEAN CORPUSCULAR VOLUME 90 fL (80-96); MONOCYTES # (AUTO) 3.3 /CMM (0.1-1.30); MONOCYTES % (AUTO) 13.3 % (2.0-12.0); NEUTROPHILS % (AUTO) 35.6 % (43.0-81.0); PLATELET COUNT (AUTO) 170 /CMM (150-450); RDW COEFFICIENT OF VARIATION 17.1 (11.5-15.0); RED BLOOD CELL COUNT(AUTO) 3.95 MIL/uL (4.5-6.0); WHITE BLOOD COUNT (AUTO) 25.2 K/uL (4.3-11.0)
--- NOTE | 2017-07-10 07:00 | NUR ---
MS/SYSTEMS LIBRARIAN; SLEPT FAIRLY. DENIES PAIN. AM CARE DONE BY THE MANAGING BROKER. REPOSITIONED. WILL ENDORSE TO THE DAY SHIFT NURSE.
[2017-07-10 07:03] LABS: ALANINE AMINOTRANSFERASE 35 U/L (12-78); ALBUMIN 2.1 g/dL (3.4-5.0); ALKALINE PHOSPHATASE 90 U/L (46-116); ASPARTATE AMINOTRANSFERASE 60 U/L (15-37); BILIRUBIN,TOTAL 1.1 mg/dL (0.2-1.0); CALCIUM, SERUM 8.7 mg/dL (8.5-10.1); CARBON DIOXIDE 30 mmol/L (21-32); CHLORIDE 90 mmol/L (98-107); CREATININE 1.1 mg/dL (0.6-1.3); GLUCOSE 84 mg/dL (74-106); PHOSPHORUS 4.1 mg/dL (2.5-4.9); POTASSIUM 3.8 mmol/L (3.5-5.1); SODIUM SERUM 127 mmol/L (136-145); TOTAL PROTEIN, SERUM 5.2 g/dL (6.4-8.2); UREA NITROGEN, BLOOD 30 mg/dL (7-18)
--- NOTE | 2017-07-10 07:40 | NUR ---
RN NOTES RECEIVED PT LYING DOWN IN BED, AWAKE, HOB ELEVATED, NO SOB OR DISTRESS NOTED. PT A/O X 3, VERBALLY RESPONSIVE AND ABLE TO MAKE TO NEEDS KNOWN. IV INTACT AND PATENT. PATIENT ON O2 AT 1 LPM VIA NC AND TOLERATED WELL. HEARING AIDS AT BEDSIDE. KEPT PATIENT CLEAN AND COMFORTABLE IN BED, CALL LIGHT WITHIN PATIENT REACH. WILL CONTINUE TO MONITOR ACCORDINGLY.
[2017-07-10 08:00] VITALS: BP 115/65
[2017-07-10] MEDS: BOOST PLUS FOOD-VANILLA 237 ML BOX PO SCH ×2 (08:38→17:39)
[2017-07-10] MEDS: FUROSEMIDE 20 MG TABLET PO SCH ×2 (08:39→17:39)
[2017-07-10] MEDS: DOCUSATE SODIUM LIQ 100 MG/10 ML UDC PO SCH ×3 (08:39→17:39)
[2017-07-10] MEDS: MULTIVITAMINS,THERAGRAN 1 UDTAB TABLET PO SCH (08:39)
[2017-07-10] MEDS: PANTOPRAZOLE 40 MG TABLET.DR PO SCH (08:39)
[2017-07-10] MEDS: LACTOBACILLUS RHAMNOSUS GG 1 EACH CAP.SPRINK PO SCH ×2 (08:39→17:39)
[2017-07-10] MEDS: CEPHALEXIN MONOHYDRATE 500 MG CAPSULE PO SCH (08:39)
[2017-07-10 10:19] LABS: BAND % (MANUAL) 1 % (0.0-5.0); LYMPHOCYTES % (MANUAL) 45 % (16-48); MONOCYTES % (MANUAL) 11 % (0-11.0); NEUTROPHILS % (MANUAL) 43 (42-76)
--- NOTE | 2017-07-10 12:29 | NUR ---
SCHUYLER called APS SCHUYLER Danielle on his cellphone and left him a voicemail message requesting a call back.
[2017-07-10] MEDS ORDERED: Boost Plus Food-Vanilla PO (15:04)
[2017-07-10] MEDS ORDERED: CEPH500C2 PO (15:04)
--- NOTE | 2017-07-10 15:35 | NUR ---
RN IGGY KIM THE MARKETER TOLD ME THAT PATIENT WILL GO TO [facility]. WILL FOLLOW UP FOR BED.
--- NOTE | 2017-07-10 15:42 | NUR ---
SCHUYLER contacted pt's son Moisés Forman with piano case maker [employer] inquiring the discharge plan for pt since piano case maker was informed he is taking pt. home. Moisés informed SCHUYLER that he is going to come to [facility] this evening around 6PM and ask the pt. if he wants to go home or to a rehab facility. Moisés thinks pt. is most likely going to want to go home. Moisés stated he will transport him home and case management is arranging home health if pt. decides to go home. SCHUYLER called APS social science teacher Shirley Danielle and informed of him of the discharge plan that pt. might be going back home if he refuses to go to rehab and pt's son Moisés is coming to transport him to rehab or home with home health. ANDRA Kelly has also been informed of discharge plan.
[2017-07-10 16:00] VITALS: BP 105/68
[2017-07-10] MEDS ORDERED: LEVOFLOXACIN (250MG) 250 MG TABLET PO SCH (17:00)
--- NOTE | 2017-07-10 17:30 | NUR ---
RN NOTES SEEN BY DR. COOMBS, PER DR COOMBS PT IS NOT ON A HOLD, ALERT OR ORIENTED ABLE TO CARRY OUT CONVERSATION RECOMMENDS TO BE FOLLOWED BY PSYCHIATRIST AT SNF IF NEEDED
--- NOTE | 2017-07-10 18:40 | NUR ---
RN NOTES SON JAMEL JASON AGREED TO PLACE PATIENT IN SNF. CAHARGE NURSE IS AWARE.
--- NOTE | 2017-07-10 18:48 | NUR ---
RN CLOSING NOTES ALL NEEDS PROVIDED, ATTENDED AND ANTICIPATED. KEPT PATIENT CLEAN AND COMFORTABLE IN BED. CALL LIGHT WITHIN PATIENT REACH, WILL CONTINUE TO MONITOR ACCORDINGLY. ENDORSED TO NEXT SHIFT RN TO CONTINUE CARE.
[2017-07-10] MEDS: ACETAMINOPHEN 325 MG TABLET PO PRN (19:15)
--- NOTE | 2017-07-10 19:15 | NUR ---
PT COMPLAIN OF LOWER BACK PAIN 04/08. TYLENOL 650MG PO GIVEN ORDERED. WILL CONTINUE TO REASSESS AND MONITOR FOR PAIN.
[2017-07-10 20:00] VITALS: BP 110/66
--- NOTE | 2017-07-10 20:01 | NUR ---
Per MD,patient can be discharge to SNF vs ARU only BUT not home due to safety. Patient was accepted at [facility]. Met with patient son Moisés and his fiance. Family want SNF placement in [place] area close to where family reside. Referral sent to Barber at [facility] [phone], has no bed tonight, can accept patient tomorrow at 1pm. Patient and son made aware, plan to dc to [facility] [place] [facility] tomorrow. Ambulance - [facility] arranged for parts picker 1pm. engineering production worker had spoken with the APS worker this afternoon. Addendum: 07/10/17 at 2001 by BONG COLVIN RN Amended: Links added.
--- NOTE | 2017-07-10 20:10 | NUR ---
PER PT'S SON, HE IS STILL COMPLAINING OF PAIN. ASKING TO GET A STRONGER PAIN MEDICATION. PAGED DR. GOODRICH FOR PAIN MEDS. AWAITING TO CALL BACK.
[2017-07-10 20:54] VITALS: BP 110/60
[2017-07-10] MEDS ORDERED: HYDROCODONE/APAP 5/325MG 1 EACH TABLET PO ONE (22:00)
--- NOTE | 2017-07-10 22:40 | NUR ---
PT COMPLAINING OF LOWER BACK PAIN 06/08. NORCO 5-325MG PO GIVEN ORDERED. WILL CONTINUE TO MONITOR AND REASSESS FOR PAIN.
[2017-07-10] MEDS ORDERED: HYDROCODONE/APAP 5/325MG 1 EACH TABLET ONE (22:45)
--- NOTE | 2017-07-11 06:16 | NUR ---
MS RN CLOSING NOTE PATIENT IS SLEEPING IN BED, NO S/S OF RESPIRATORY DISTRESS. KEPT CLEAN AND DRY AT ALL TIMES. BED IS IN LOW AND LOCKED POSITION, SIDERAILS UPX2, CALL LIGHT WITHIN REACH. WILL ENDORSE TO DAY SHIFT NURSE FOR MARCE.
--- NOTE | 2017-07-11 07:20 | NUR ---
RN NOTES RECEIVED PT LYING DOWN IN BED, AWAKE, HOB ELEVATED, NO SOB OR DISTRESS NOTED. PT A/O X 2, VERBALLY RESPONSIVE AND ABLE TO MAKE TO NEEDS KNOWN. IV INTACT AND PATENT. PATIENT ON O2 AT 1 LPM VIA NC AND TOLERATED WELL. HEARING AIDS AT BEDSIDE. KEPT PATIENT CLEAN AND COMFORTABLE IN BED, CALL LIGHT WITHIN PATIENT REACH. WILL CONTINUE TO MONITOR ACCORDINGLY.
[2017-07-11 07:31] LABS: BASOPHILS # (AUTO) 0.1 /CMM (0.0-0.2); BASOPHILS % (AUTO) 0.4 % (0.0-2.0); EOSINOPHILS # (AUTO) 0.1 /CMM (0.0-0.7); EOSINOPHILS % (AUTO) 0.3 % (0.0-6.0); HEMATOCRIT 38 % (39-51); HEMOGLOBIN 12.9 g/dL (13.5-17.5); LYMPHOCYTES # (AUTO) 12.8 /CMM (0.8-4.8); MEAN CORPUSCULAR HEMOGLOBIN 31 PG (26.0-33.0); MEAN CORPUSCULAR HGB CONC 34 g/dl (31.0-36.0); MEAN CORPUSCULAR VOLUME 91 fL (80-96); MONOCYTES # (AUTO) 4.1 /CMM (0.1-1.30); MONOCYTES % (AUTO) 13.8 % (2.0-12.0); NEUTROPHILS # (AUTO) 12.7 /CMM (1.8-8.9); NEUTROPHILS % (AUTO) 42.5 % (43.0-81.0); PLATELET COUNT (AUTO) 156 /CMM (150-450); RDW COEFFICIENT OF VARIATION 18.4 (11.5-15.0); RED BLOOD CELL COUNT(AUTO) 4.17 MIL/uL (4.5-6.0); WHITE BLOOD COUNT (AUTO) 29.8 K/uL (4.3-11.0)
[2017-07-11 07:53] LABS: CALCIUM, SERUM 8.6 mg/dL (8.5-10.1); CARBON DIOXIDE 27 mmol/L (21-32); CHLORIDE 92 mmol/L (98-107); GLUCOSE 88 mg/dL (74-106); PHOSPHORUS 3.8 mg/dL (2.5-4.9); POTASSIUM 4.1 mmol/L (3.5-5.1); SODIUM SERUM 128 mmol/L (136-145); UREA NITROGEN, BLOOD 36 mg/dL (7-18)
[2017-07-11 08:00] VITALS: BP 120/75
[2017-07-11] MEDS: MULTIVITAMINS,THERAGRAN 1 UDTAB TABLET PO SCH (08:36)
[2017-07-11] MEDS: BOOST PLUS FOOD-VANILLA 237 ML BOX PO SCH (08:36)
[2017-07-11] MEDS: PANTOPRAZOLE 40 MG TABLET.DR PO SCH (08:36)
[2017-07-11] MEDS: DOCUSATE SODIUM LIQ 100 MG/10 ML UDC PO SCH ×2 (08:36→12:40)
[2017-07-11] MEDS: LACTOBACILLUS RHAMNOSUS GG 1 EACH CAP.SPRINK PO SCH (08:36)
[2017-07-11] MEDS: FUROSEMIDE 20 MG TABLET PO SCH (08:36)
[2017-07-11 10:06] LABS: LYMPHOCYTES % (MANUAL) 35 % (16-48); MONOCYTES % (MANUAL) 7 % (0-11.0); NEUTROPHILS % (MANUAL) 58 (42-76)
--- NOTE | 2017-07-11 12:25 | NUR ---
RN NOTES JAMEL (SON) IS AT BEDSIDE WAITING FOR HIS DAD TO BE DISCHARGE.
--- NOTE | 2017-07-11 14:50 | NUR ---
RN NOTES DISCHARGE INSTRUCTIONS GIVEN TO PATIENT AND SON (JAMEL) AND ABLE TO UNDERSTAND INSTRUCTIONS. BELONGINGS LIST CHECKED WITH SON. PATIENT REFUSED PICTURES. PATIENT LEFT VIA GURNEY ACCOMPANIED WITH 2 EMT'S, ONE CASE FINISHING MACHINE ADJUSTER AND MY SELF IN STABLE CONDITIOBN Addendum: 07/11/17 at 1602 by LAINEY RYAN RN AMEND, NOTES NOT COMPLETED. RN NOTES DISCHARGE INSTRUCTIONS GIVEN TO PATIENT AND SON (JAMEL) AND ABLE TO UNDERSTAND INSTRUCTIONS. BELONGINGS LIST CHECKED WITH SON. PATIENT REFUSED PICTURES. PATIENT LEFT VIA GURNEY ACCOMPANIED WITH 2 EMT'S, ONE CASE FINISHING MACHINE ADJUSTER AND MY SELF IN STABLE CONDITION WITH NO SOB OR DISTRESS NOTED. VITALS SIGNS CHECKED AND RECORDED. MD AND CHARGE NURSE AWARE.
--- NOTE | 2017-07-13 11:55 | NUR ---
SCHYULER received a call from [facility] social service liaison Shirley Danielle inquiring where pt. was discharged. SCHUYLER informed him that pt. was transferred on Thursday07/11/17 to [facility] [phone].
== END 2017-07-11 14:45 | DRG 814 ==
LOC: ER 22:59 → MED 06-27 03:52
PROVIDERS: ADMIT Nurse Practitioner Acute Care
DX: D73.5 Infarction of spleen (principal); E43 Unspecified severe protein-calorie malnutrition; J96.01 Acute respiratory failure with hypoxia; G92 Toxic encephalopathy; C91.10 Chronic lymphocytic leukemia of B-cell type not having achieved remission; N39.0 Urinary tract infection, site not specified; C79.51 Secondary malignant neoplasm of bone; E87.1 Hypo-osmolality and hyponatremia; J98.11 Atelectasis; K80.10 Calculus of gallbladder with chronic cholecystitis without obstruction; C79.72 Secondary malignant neoplasm of left adrenal gland; C79.71 Secondary malignant neoplasm of right adrenal gland; C92.10 Chronic myeloid leukemia, BCR/ABL-positive, not having achieved remission; D69.6 Thrombocytopenia, unspecified; D64.9 Anemia, unspecified; E87.70 Fluid overload, unspecified; F29 Unspecified psychosis not due to a substance or known physiological condition; G89.29 Other chronic pain; H57.02 Anisocoria; H91.90 Unspecified hearing loss, unspecified ear; I67.2 Cerebral atherosclerosis; K57.30 Diverticulosis of large intestine without perforation or abscess without bleeding; K59.00 Constipation, unspecified; M25.78 Osteophyte, vertebrae; M46.90 Unspecified inflammatory spondylopathy, site unspecified; M48.06 Spinal stenosis, lumbar region; M54.16 Radiculopathy, lumbar region; M54.30 Sciatica, unspecified side; N40.0 Benign prostatic hyperplasia without lower urinary tract symptoms; R32 Unspecified urinary incontinence; Z85.72 Personal history of non-Hodgkin lymphomas; Z98.890 Other specified postprocedural states; R59.0 Localized enlarged lymph nodes; B96.89 Other specified bacterial agents as the cause of diseases classified elsewhere
CPT/HCPCS: 36415; 70450-TC; 71010-TC; 72128-TC; 72131-TC; 80048-TC; 80053-TC; 80061-TC; 80076-TC; 80305; 81000-TC; 83605-TC; 83615-TC; 83690-TC; 83735-TC; 83935-TC; 84100-TC; 84153-TC; 84154-TC; 84300-TC; 84443-TC; 84484-TC; 84550-TC; 85025-TC; 85396; 85730-TC; 87040-TC; 87081-TC; 87086-TC; 92521; 92526; 93971-TC; 97001-TC; 97116-TC; 97530-TC; A4606; J0696; J2270; J2543; J3475; J7030; J7060; Z7610